=== PATIENT | female | born 1965 | race Caucasian/White ===

== ENCOUNTER 2016-07-20 15:37 | Inpatient (IN) | payer MEDICARE, BC ==
[~2016-07-20] VITALS: Ht 172.7 cm; Wt 63.7 kg
--- NOTE | ~2016-07-20 | DS ---
PATIENT:JYOTSNA JULIAN :63 MEDICAL RECORD: [id number] DISCHARGE SUMMARY ADMISSION DATE: 07/20/16 DISCHARGE DATE: 07/27/16 DATE OF ADMISSION: 07/20/2016 DATE OF DISCHARGE: 07/27/2016 HOSPITAL COURSE: This is a 51-year-old who suffered a pelvic fracture, who was seen by ortho, had a CT scan and generally can only have pain management for the first 3 days, she cried for approximately 24 hours. We tried multiple medications including morphine drip without success and did fine at Dilaudid 2 mg q.4 hours p.r.n. pain has been successful. She is being discharged to a [facility] rehab close to her family in [place]. All review of systems are negative, but she did have some pain when she got up and walked this morning. HOME MEDICATIONS: Exactly the same, we did not have an accurate med list here from her dialysis unit and still not able to obtain. The only new medications are Dilaudid 2 mg q.4 hours and Phenergan 25 mg q.4 hours p.r.n. pain and p.r.n. nausea, respectively. She will continue a renal diet. Activity as per rehab and facility. She is to return if any problems. Continue a renal diet with fluid restriction. We did discuss her tobacco use as well as it is probably time per her to quit at 51 years of age with developing symptoms of COPD. Chantix was offered, which she declined. Stable on discharge. TRANSINT:[id number] Voice Confirmation ID: [id number] DOCUMENT ID: [id number] DAVIE RODRIGUEZ MD CC: [id number] DICTATION DATE: 07/27/16827 FERMENTING CELLAR DROPPER: 07/28/16 0053 DIS IN 07/27/16 [facility] [address] [place] [address]
[~2016-07-20 15:37] MED LIST: BAYER CHEWABLE81 MG PO; BRILINTA90 MG PO; CARDURA2 MG PO; GABAPENTIN100 MG PO; GLIPIZIDE10 MG PO; HUMULIN R100 U/ML SC; NIASPAN500 MG PO; NORVASC10 MG PO; OYST-CAL-5001 TAB PO; PLAVIX75 MG PO; PRILOSEC20 MG PO; RENA-VITE TABL0.8 MG PO; RENAGEL800 MG PO; TAMOXIFEN CITRA20 MG PO; TENORMIN25 MG PO; TUMS500 MG PO; VISINE15 ML EACH EYE; ZOCOR20 MG PO
--- NOTE | 2016-07-20 15:39 | NUR ---
ALERT AND ORIENTED X4. ARRIVE TO UNIT FROM [facility] VIA STRETCHER. TRANSFER FROM STRETCHER TO BED WITH ASSISTANCE. RT PUBIC RAMUS FRACTURE WEDNESDAY. ADMITTED FOR PAIN MANAGEMENT. DIALYSIS TREATMENT BEFORE ARRIVING TO HOSPITAL. 4mg IV MORPHINE ADMINISTERED INROUTE AT 1411 PER EMT. DENIES SOB. CONTINUE PLAN OF CARE. CONTINUE ADMISSION PROCESS. BED LOCKED AND LOW. CALL LIGHT IN REACH. TWO SIDERAILS UP. SCDs ON. NONSKID SOCKS ON.
[2016-07-20] MEDS ORDERED: BAYER ASPIRIN325 MG PO (15:50)
[2016-07-20] MEDS ORDERED: PHENERGAN25 M1 PO (15:55)
[2016-07-20] MEDS ORDERED: COLACE100 MG PO (15:55)
[2016-07-20] MEDS ORDERED: PERCOCET 5-3251 TAB PO (15:56)
[2016-07-20] MEDS ORDERED: XALATAN 0.0052.5 ML EACH EYE (15:57)
[2016-07-20] MEDS ORDERED: EMLA CREAM 30 G30 G1 TOPICAL (15:57)
[2016-07-20] MEDS ORDERED: PROVENTIL HFA6.7 GM INH (15:58)
[2016-07-20] MEDS ORDERED: SENSIPAR30 MG PO (15:59)
[2016-07-20 16:18] VITALS: BP 107/56; BMI 21.2
--- NOTE | 2016-07-20 18:04 | NUR ---
[facility] SHALE PROCESSING TECHNICIAN PAGED X2 PER 'S ORDER FOR FURTHER ORDERS. CBC/BMP FOR AM LABS AND ORTHO CONSULT PER ALY HANNAH. SCDs ON. DENIES ANY NEEDS. CONTINUE PLAN OF CARE AND SAFETY PRECAUTIONS.
[2016-07-20 20:00] VITALS: BP 125/61
--- NOTE | 2016-07-20 21:20 | NUR ---
ADMIN SCHED MEDS AND MORPHINE 2MG IV PER REQUEST FOR C/O "PELVIC AND GROIN PAIN LEVEL 10 ON 0-10 NUMBER SCALE", DESCRIBED SHARP, SHOOTING PAINS WITH MOVEMENT. CHECKED BS AT 154. REFUSED INSULIN.
[2016-07-21] VITALS: BP 123/61
--- NOTE | 2016-07-21 01:04 | NUR ---
TEARFULLY REQUESTED PAIN MEDICATION FOR PELVIC PAIN. ADMIN MORPHINE 2MG IV. WILL CONT TO MONITOR.
--- NOTE | 2016-07-21 05:05 | NUR ---
VERY TEARFUL. RATING PAIN LEVEL AT 10. ADMIN MORPHINE 2MG IV. REQUESTED SOME MILK AND ALESSIA CRACKERS. CK BS AT 126. REFUSED GLIPIZIDE AND SCHED INSULINS.
[2016-07-21 06:33] LABS: INR 1.03 (0.85-1.17); PROTIME 13.4 SECONDS (11.6-15.0)
[2016-07-21 06:38] LABS: ANION GAP 20.4 mmol/L (8-16); CALCIUM 9.3 mg/dL (8.5-10.1); CARBON DIOXIDE 23.8 mmol/L (21.0-32.0); CREATININE - SERUM 7.9 mg/dL (0.6-1.3); PHOSPHOROUS 4.9 mg/dL (2.5-4.9); POTASSIUM - SERUM 4.2 mmol/L (3.5-5.1)
[2016-07-21 07:00] LABS: BASOPHILS 0.3 % (0-2); EOSINOPHILS 3.1 % (0-7); HEMATOCRIT 32.3 % (36.0-48.0); HEMOGLOBIN 10.5 g/dL (12-16); IMMATURE GRANULOCYTES 0.1 % (0-5); LYMPHOCYTES 25.7 % (15-50); MCH 33.8 pg (26.0-34.0); MCHC 32.5 g/dL (31.0-37.0); MCV 103.9 fL (80.0-100.0); MONOCYTES 19.7 % (2-11); NEUTROPHILS 51.1 % (40-80); RBC 3.11 10x6/uL (4.00-5.40); RDW 13.3 % (11.5-14.5); WBC 7.3 10x3/uL (4.8-10.8)
[2016-07-21 07:02] LABS: PLATELET COUNT 162 10x3/uL (130-400)
[2016-07-21 08:00] VITALS: BP 117/59
--- NOTE | 2016-07-21 08:20 | NUR ---
PATIENT IS AWAKE AND ALERT. SHE TOOK RENVELA POWDER BUT REQUESTS A TABLET FORM IN THE FUTURE. SHE TAKES HER CARDURA AT NIGHT AT HOME AND REQUESTS THAT THAT BE GIVEN THEN. WILL NOTIFY PHARMACY OF THESE REQUESTS. SHE RATES HER PAIN AN 8/9 OUT OF 10 IN HER HIPS. MORPHINE GIVEN PER THE IV IN HER RIGHT WRIST SL. SHE STATES THAT THE PAIN IN HER HIPS MAKES IT VERY DIFFICULT FOR HER TO MOVE AROUND IN HER BED.
--- NOTE | 2016-07-21 10:10 | NUR ---
PATIENT CONTINUES TO C/O PAIN RATED A 9 DESPITE RECENT DOSE OF MS. DISCUSSED THIS WITH HAND GLUER AND SLICER, NEW ORDERS RECEIVED. SENIOR IT BUSINESS ANALYST BEGUN AND BENADRYL GIVEN ORALLY. SENIOR IT BUSINESS ANALYST INSTRUCTIONS GIVEN ORALLY. SHE VERBALIZED AND DEMONSTRATED UNDERSTANDING. SHE STATES THAT IS FEELS LIKE HER HIPS ARE BEING PULLED APART WHEN SHE PUSHES SELF UP IN BED. ENCOURAGED HER TO CALL FOR ANY PRECEIVED NEEDS, MAYBE WE COULD HELP HER REPOSITION SELF.
[2016-07-21 10:11] VITALS: Ht 172.7 cm; Wt 63.7 kg
--- NOTE | 2016-07-21 10:53 | NUR ---
PATIENT RESTING WITH EYES CLOSED. SHE CURRENTLY RATES HER PAIN A 5 AND HER ITCHING IS MUCH LESS "ITS GOING AWAY" DENIES OTHER NEEDS AT THIS TIME.
[2016-07-21 13:26] VITALS: BP 116/59
[2016-07-21 16:00] VITALS: BP 105/47
--- NOTE | 2016-07-21 18:01 | NUR ---
REVIEW TRAINER IN USE AND PATIENT IS WITHOUT C/O UNRELEAVED PAIN.
--- NOTE | 2016-07-21 19:18 | NUR ---
RECEIVED REPORT, PT ALERT AND ORIENTATED, PT DENIES ANY NEEDS AT THIS TIME, BED IS LOW, SRX2, BED ALARM IS ON, CALL LIGHT IN REACH, WILL CONTINUE PLAN OF CARE
--- NOTE | 2016-07-21 19:30 | NUR ---
ALERT/AWAKE WATCHING TV. RATES PAIN LEVEL AT 2 ON 0-10 NUMBER SCALE. IV IN R WRIST INTACT WITH NS INFUSING AT 10ML/HR. HAS ISOBUTYLENE OPERATOR CHIEF WITH MORPHINE FOR PAIN CONTROL. L ARM FISTULA HAS POSITIVE BRUIT/THRILL AUSCULTATED. HAS CALL LIGHT IN REACH FOR ANY NEED.
[2016-07-21 20:00] VITALS: BP 139/69
[2016-07-22 01:17] VITALS: BP 128/62
--- NOTE | 2016-07-22 01:27 | NUR ---
ASSISTED PT WITH BEDSIDE COMMODE.
[2016-07-22 06:28] VITALS: BP 138/69
--- NOTE | 2016-07-22 07:46 | NUR ---
AM ROUNDING- RECEIVED REPROT FROM STEAMFITTER NURSE ARASH. PT IS CURRENTLY SITTING UP IN BED WITH EYES OPEN RESTING C/O 10/10 PAIN FROM PELVIC AREA. PT IS UPSET BECAUSE SHE HAS HIT MAX LIMIT ON HYDRO TECHNICIAN PUMP (MORPHINE 1MG Q10MIN WITH 10MG LOCKOUT Q4H ORDERED). EXPLAINED TO PT THAT SHE HAS A LOCKOUT LIMIT AND SHE WILL NOT BE ABLE TO RECEIVE PAIN MEDICINE VIA HYDRO TECHNICIAN PUMP UNTIL TIME IS UP. PRACHI ALARCON, CASER UP GAVE PT PRN OXYCODONE AND PHENERGAN ORDERED FOR PAIN. ON ROOM AIR. NO MONITOR. IV SEEN TO RIGHT WRIST WITH NS RUNNING AT 10CC. RESERVE LEFT ARM FOR AVF. NO NEED AT CURRENT TIME. WILL CONTIUE TO MONITOR AND CONTINUE WITH PLAN OF CARE.
[2016-07-22 08:00] VITALS: BP 167/78
--- NOTE | 2016-07-22 09:02 | NUR ---
NAEL FROM LAB TRIED TO STICK PT TWICE AND WAS NOT ABLE TO GET BLOOD. PT REQUESTED LAB TO COME BACK TO TRY AND STICK HER WHEN SHE HAS DRANK MORE FLUIDS. THIS INFORMATION WAS PASSED ON TO ME FROM GABRIELE IN LAB. WILL CONTINUE TO MONITOR.
--- NOTE | 2016-07-22 10:53 | NUR ---
* Is the patient Alert and Oriented? Yes 0 * How many steps to enter\exit or inside your home? 3 0 * PCP Dr. Agustin 0 * Pharmacy [facility] 0 * Preadmission Environment Home with Family 0 * ADLs Independent 0 * Equipment Rolling Walker 0 * List name and contact numbers for known caregivers / representatives who currently or will assist patient after discharge: Spouse - Moises [phone] 0 * Community resources currently utilized Other 0 * Please name any agencies selected above. [facility] 0 * Can the patient safely return to the preadmission environment? Yes 0 * Has this patient been hospitalized within the prior 30 days at any hospital? No 07/22/2016 10:53 DCP: Discharge Planning Patient Name: JYOTSNA JULIAN Admission Status: Urgent Accout number: [id number] Admission Date: 07-20-2016 : 1965 Admission Diagnosis:PELVIC AND PERINEAL PAIN Attending: ERIN Current LOS: 2 Planned Disposition: Home Primary Insurance: MEDICARE A & B Discharge Planning Comments: CM met with patient to assess dc plans/needs. Patient states she lives at home with her . She reports she was independent with all ADL's & IADL's prior to her fall last week. Since her fall, she has been using a walker while ambulating. She denies having home health services. She states she goes to hemodialysis MWF @ 0600 at the [facility]. She states she drives herself. At dc, patient may benefit from outpatient physical therapy. CM will follow & assist as needed. Post Framer: Cher Simon
--- NOTE | 2016-07-22 12:31 | NUR ---
DIANNE SHIPLEY NP IN ROOM NOW MAKING ROUNDS. WILL CONTINUE TO MONITOR.
[2016-07-22 14:01] VITALS: BP 151/56
[2016-07-22 15:40] LABS: ANION GAP 22.4 mmol/L (8-16); CARBON DIOXIDE 21.8 mmol/L (21.0-32.0)
[2016-07-22 15:41] LABS: CREATININE - SERUM 10.6 mg/dL (0.6-1.3)
[2016-07-22 15:42] LABS: POTASSIUM - SERUM 6.2 mmol/L (3.5-5.1)
--- NOTE | 2016-07-22 15:44 | NUR ---
PAGED DR. RODRIGUEZ REGARDING PTS POTASSIUM LEVEL (6.2). WILL AWAIT CALLBACK AND CONTINUE TO MONITOR.
--- NOTE | 2016-07-22 15:48 | NUR ---
RECEIVED CALLBACK FROM DR. RODRIGUEZ. DR. RODRIGUEZ INFORMED OF PTS POTASSIUM LEVEL (6.2). DR. RODRIGUEZ STATES PT CANNOT HANDLE KAYEXALATE AND WILL HAVE TO DIALYZE TODAY. DR. RODRIGUEZ STATES TO CALL DIALYSIS AND IFORM THEM OF THIS. CALLING DIALYSIS NOW WITH NO ANSWER. WILL TRY AGAIN AND CONTINUE TO MONITOR.
[2016-07-22 16:00] VITALS: BP 123/68
--- NOTE | 2016-07-22 16:02 | NUR ---
CALLED DIALYSIS AGAIN WITH NO ANSWER AGAIN. WILL PAGE DR. RODRIGUEZ TO INFORM HIM OF THIS.
--- NOTE | 2016-07-22 16:05 | NUR ---
RECEIVED CALLBACK FROM DR. RODRIGUEZ. IFORMED DR. RODRIGUEZ THAT I HAVE CALLED DIALYSIS A FEW TIMES WITH NO ANSWER. DR. RODRIGUEZ GAVE NO NEW ORDERS. WILL CONTINUE TO MONITOR.
--- NOTE | 2016-07-22 17:57 | NUR ---
PT IS CURRENTLY LAYING IN BED ON BACK WITH EYES OPEN RESTING. IS AT BEDSIDE. NO NEED AT CURRENT TIME. WILL CONTINUE TO MONITOR.
[2016-07-22 21:40] VITALS: BP 123/58
--- NOTE | 2016-07-22 22:10 | NUR ---
ADMIN SCHED MEDS AND 2 UNITS INSULIN SC FOR BS 158. RATES PAIN LEVEL AT 2 ON NUMBER SCALE. REQUESTED ANOTHER BOX OF TISSUES.
[2016-07-23 01:21] VITALS: BP 112/60
--- NOTE | 2016-07-23 03:59 | NUR ---
PULLED IV OUT. RESITED IN RIGHT WRIST 22G. C/O NAUSEA. ADMIN PHENERGAN 25MG PO.
--- NOTE | 2016-07-23 04:40 | NUR ---
ASSISTED TO BSC AND BACK TO BED. DID NOT HAVE A BM, PASSED GAS ONLY. ADMIN PHENERGAN PO FOR C/O NAUSEA AND BENADRYL FOR C/O ITCHING. RATES PAIN LEVEL AT 10.
[2016-07-23 04:47] VITALS: BP 110/59
--- NOTE | 2016-07-23 05:46 | NUR ---
REFUSED TECHNICAL PRODUCT MANAGER TO DRAW BLOOD. STATED IT SHE WANTED IT DOWN IN DIALYSIS.
--- NOTE | 2016-07-23 06:18 | NUR ---
CALLED DIALYSIS PER PATIENT'S REQUEST TO FIND OUT WHEN SHE IS SCHEDULED TODAY. NO ONE ANSWERED. WILL INFORM PATIENT.
--- NOTE | 2016-07-23 07:00 | NUR ---
PT WAS RECEIVED IN BED AWAKE AND ORIENTED X 3 AT THE BEGINNING OF THIS SHIFT. NO COMPLAINTS AT THIS TIME. SHE IS ASKING WHEN DOES SHE DIALIZE TODAY. RT. WRIST IV WITH NS INFUSING VIA PUMP AT 10ML'S/HR RATE OF FLOW. DATABASE ADMINISTRATOR MORPHINE PUMP. UP TO BEDSIDE COMMODE WITH ASSIST. RESERVE LEFT ARM. LEFT AV-FISTULA. WILL BE MONITORING HER THROUGH THIS SHIFT AND ASSISTING PRN WITH ADL'S. CALL LIGHT IS IN REACH.
[2016-07-23 08:40] VITALS: BP 112/56
[2016-07-23 10:53] LABS: BASOPHILS 0.3 % (0-2); EOSINOPHILS 4.2 % (0-7); HEMATOCRIT 25.5 % (36.0-48.0); HEMOGLOBIN 8.6 g/dL (12-16); IMMATURE GRANULOCYTES 0.8 % (0-5); MCH 33.5 pg (26.0-34.0); MCHC 33.7 g/dL (31.0-37.0); MCV 99.2 fL (80.0-100.0); MEAN PLATELET VOLUME 9.2 fL (7.4-10.4); MONOCYTES 10.8 % (2-11); NEUTROPHILS 63.9 % (40-80); PLATELET COUNT 173 10x3/uL (130-400); RBC 2.57 10x6/uL (4.00-5.40); RDW 12.6 % (11.5-14.5); WBC 6.4 10x3/uL (4.8-10.8)
[2016-07-23 11:06] LABS: ANION GAP 22.8 mmol/L (8-16); CALCIUM 8.6 mg/dL (8.5-10.1); CREATININE - SERUM 11.9 mg/dL (0.6-1.3); PHOSPHOROUS 6.4 mg/dL (2.5-4.9); POTASSIUM - SERUM 5.8 mmol/L (3.5-5.1)
--- NOTE | 2016-07-23 12:15 | NUR ---
Nutrition follow-up: Diet: Renal ADA consistent CHO PO intake poor at this time due to nuasea, increased pain, increased pain medication Labs reviewed Wt: 138# Pt in dialysis at this time RDN following.
--- NOTE | 2016-07-23 17:39 | NUR ---
PT WENT TO THERAPY AT 10:15AM AND RETURNED AFTER LUNCH TIME. WHILE SHE WAS IN DIALYSIS SHE REQUESTED SOMETHING FOR PAIN AND RECEIVED A DILAUDID 2MG PO ORDERED PRN. THE TRASH TRUCK DRIVER MORPHINE WAS DC'D. SHE HAS NOT ASKED FOR ANYMORE PAIN MEDICATION THIS SHIFT. STABLE CONDITION OBSERVED. CONTINUING TO OBSERVE.
[2016-07-23 20:24] VITALS: BP 100/43
[2016-07-24 01:28] VITALS: BP 98/33
[2016-07-24 04:34] VITALS: BP 99/43
--- NOTE | 2016-07-24 07:42 | NUR ---
AM ROUNDING DONE WITH NO COMPLAINTS FROM PATIENT AT THIS TIME. ON HEART MONITOR SHOWING SR, HR 81. ON ROOM AIR. SALINE LOCK SEEN TO RIGHT HAND, LEFT AVF TO UPPER ARM, + BRUIT AND THRILL. PATIENT REPORTS THAT SHE DOES NOT VOID, FOR DIALYSIS AGAIN TODAY. WILL MONITOR.
--- NOTE | 2016-07-24 08:05 | NUR ---
MET WITH PATIENT ABOUT GOING TO A SKILLED FACILITY FOR REHAB. SHE STATED THAT SHE WANTED TO GO TO [facility] IN [place]. PATIENT CHOICE FORM SIGNED. AFTER SHE RECEIVES HER PHYSICAL THERAPY EVAL, WILL MAKE REFERRAL TO [facility].
[2016-07-24 08:47] VITALS: BP 118/61
--- NOTE | 2016-07-24 09:49 | NUR ---
Dialysis Coordinator: ADAMARIS [facility] MWF @ 6:20am. Records to home unit for their charts. JUAN A BOWEN.
--- NOTE | 2016-07-24 09:54 | NUR ---
0945-TO DIALYSIS SUITE VIA BED.
--- NOTE | 2016-07-24 13:41 | NUR ---
RETURNS TO ROOM.
--- NOTE | 2016-07-24 15:46 | NUR ---
HAVE SPOKE WITH SUMMER AT [facility]. PATIENT HAS BEEN ACCEPTED AND WILL BE GOOD FOR ADMISSION ON WEDNESDAY. IT WAS EXPLAINED THAT HER SPOUSE HAS STATED HE WOULD TRANSPORT HER THERE. SHE STATED SHE WOULD CALL ON WEDNESDAY TO CONFIRM DISCHARGE.
[2016-07-24 16:29] LABS: BASOPHILS 0.4 % (0-2); EOSINOPHILS 4.8 % (0-7); HEMATOCRIT 33.7 % (36.0-48.0); HEMOGLOBIN 11.1 g/dL (12-16); IMMATURE GRANULOCYTES 0.6 % (0-5); MCH 33.8 pg (26.0-34.0); MCHC 32.9 g/dL (31.0-37.0); MCV 102.7 fL (80.0-100.0); NEUTROPHILS 63.2 % (40-80); PLATELET COUNT 266 10x3/uL (130-400); RBC 3.28 10x6/uL (4.00-5.40); RDW 12.8 % (11.5-14.5)
[2016-07-24 16:38] LABS: ANION GAP 23.1 mmol/L (8-16); CALCIUM 9.5 mg/dL (8.5-10.1); CARBON DIOXIDE 24.1 mmol/L (21.0-32.0)
[2016-07-24 16:39] LABS: CREATININE - SERUM 5.1 mg/dL (0.6-1.3); POTASSIUM - SERUM 4.2 mmol/L (3.5-5.1)
--- NOTE | 2016-07-24 16:41 | NUR ---
PER DR RODRIGUEZ, PATIENT WILL BE GOOD FOR DISCHARGE AFTER DIALYSIS ON WEDNESDAY. THIS HAS BEEN RELAYED TO THE PATIENT AND HER SPOUSE.
--- NOTE | 2016-07-24 16:46 | NUR ---
1649-PATIENT IS OUTSIDE OF THE BUILDING IN A WHEELCHAIR WITH SPOUSE.
--- NOTE | 2016-07-24 17:14 | NUR ---
1705-TO RETURN TO ROOM.
--- NOTE | 2016-07-24 18:21 | NUR ---
1815-OFF THE FLOOR AGAIN PER WHEELCHAIR WITH SPOUSE.
[2016-07-24 19:41] VITALS: BP 125/64
--- NOTE | 2016-07-24 20:45 | NUR ---
PT RECEIVED SITTING UP ON SIDE OF BED WATCHING TV AT THIS TIME. ASSESSMENT COMPLETED PER FLOW SHEET AND PM MEDS GIVEN AT THIS TIME. PT FSBS 148. PT REQUESTS APPLE JUICE. DENIES OTHER NEEDS. BED LOW. PHONE AND CALL LIGHT IN REACH. SRX2.
--- NOTE | 2016-07-24 23:09 | NUR ---
PRN MEDS GIVEN AT THIS TIME. PT REQUESTS 2 SMALL BANDAIDS. DENIES OTHER NEEDS. BED LOW. PHONE AND CALL LIGHT IN REACH. SRX2.
--- NOTE | 2016-07-24 23:43 | NUR ---
PT RESTING WELL WITHOUT C/O OR DISTRESS NOTED. NO CHANGES NOTED IN ASSESSMENT. CALL LIGHT WITHIN REACH. WILL CONT TO MONITOR.
--- NOTE | 2016-07-25 00:40 | NUR ---
PT RESTING QUIETLY AT THIS TIME WITH EYES CLOSED. RESPIRATIONS EVEN, NON-LABORED. NO ACUTE DISTRESS NOTED AT THIS TIME. BED LOW. PHONE AND CALL LIGHT IN REACH. SRX2.
[2016-07-25 00:59] VITALS: BP 97/56
--- NOTE | 2016-07-25 04:00 | NUR ---
PT IN BED, PLACED HEART MONITOR BACK ON, PT DENIES ANY NEEDS AT THIS TIME. CALL LIGHT IN REACH, BED RAILS X2, BED LOW AND LOCKED. NAD NOTED, WILL CONTINUE TO MONITOR.
--- NOTE | 2016-07-25 07:15 | NUR ---
BLOOD SUGAR OF 158, 2 UNITS OF HUMALOG GIVEN PER S/S. PT UP TO SIDE OF BED, DENIES ANY NEEDS AT THIS TIME. CALL LIGHT IN REACH, NAD NOTED, WILL CONTINUE TO MONITOR.
[2016-07-25 11:44] VITALS: BP 121/45
--- NOTE | 2016-07-25 12:00 | NUR ---
FSBS 246; PATIENT RECEIVED 4 UNITS OF HEMALOG INSULIN PER S/S; GIVEN PER SEMICONDUCTOR WAFERS ETCHER STRIPPER AND INSTRUCTOR; NO NEEDS AT THIS TIME; WILL CONTINUE TO MONITOR
--- NOTE | 2016-07-25 14:09 | NUR ---
PATIENT A/O; FINE SANDER FLUSH IV; FLUSHED WITH NO DIFFICULTY; NO NEEDS AT THIS TIME; WILL CONTINUE TO MONITOR
[2016-07-25 16:00] VITALS: BP 104/47
--- NOTE | 2016-07-25 16:30 | NUR ---
FSBS 179; PATIENT RECEIVED 2 UNITS HEMALOG PER S/S; NO NEEDS AT THIS TIME; UP TO SIDE OF BED; WILL CONTINUE TO MONITOR
--- NOTE | 2016-07-25 17:50 | NUR ---
PATIENT BACK TO ROOM WITH NO C/O OR DISTRESS AT THIS TIME; BED IN LOWEST POSITION WITH RAILS UP X 2; CALL LIGHT WITHIN REACH; WILL CONTINUE TO MONITOR
[2016-07-25 21:00] VITALS: BP 135/63
--- NOTE | 2016-07-25 21:00 | NUR ---
SITTING UP IN BED TALKING ON PHONE. ADMIN SCHED MEDS AND HUMALOG 4 UNITS FOR BS 227.
--- NOTE | 2016-07-26 00:23 | NUR ---
ADMIN BENADRYL 25MG PO PER REQUEST FOR C/O "ITCHING". NO OTHER NEEDS VOICED.
[2016-07-26 04:00] VITALS: BP 135/51
--- NOTE | 2016-07-26 05:50 | NUR ---
AMBULATING IN HALLWAY TO GET COFFEE. REQUESTED PAIN MED AND PHENERGAN.
[2016-07-26 08:00] VITALS: BP 157/87
[2016-07-26 11:45] VITALS: BP 117/51
--- NOTE | 2016-07-26 15:24 | NUR ---
UP AMBULATING HALLWAY WITH WALKER.
[2016-07-26 15:56] VITALS: BP 116/47
--- NOTE | 2016-07-26 19:17 | NUR ---
ALERT/AWAKE WATCHING TV. DENIES ANY NEEDS. RATES PAIN LEVEL AT 6 ON NUMBER SCALE. IV IN HAND INTACT SL. HOUSECLEANER FLOOR SHOWS 66 SR. BEDSIDE TABLE, CALL LIGHT AND WALKER WITHIN REACH.
--- NOTE | 2016-07-26 21:19 | NUR ---
ADMIN SCHED MEDS AND DILAUDID PO PER REQUEST FOR C/O PAIN. REQUESTED CARTON OF MILK. NO OTHER NEEDS VOICED.
[2016-07-26 21:30] VITALS: BP 103/55
[2016-07-27 00:55] VITALS: BP 120/53
[2016-07-27 05:39] LABS: BASOPHILS 0.6 % (0-2); EOSINOPHILS 6.5 % (0-7); HEMOGLOBIN 9.8 g/dL (12-16); IMMATURE GRANULOCYTES 0.8 % (0-5); LYMPHOCYTES 28.2 % (15-50); MCH 34.3 pg (26.0-34.0); MCHC 33.8 g/dL (31.0-37.0); MCV 101.4 fL (80.0-100.0); MEAN PLATELET VOLUME 9.7 fL (7.4-10.4); MONOCYTES 8.6 % (2-11); NEUTROPHILS 55.3 % (40-80); RBC 2.86 10x6/uL (4.00-5.40); RDW 12.6 % (11.5-14.5); WBC 8.5 10x3/uL (4.8-10.8)
[2016-07-27 05:43] LABS: PLATELET COUNT 329 10x3/uL (130-400)
--- NOTE | 2016-07-27 05:45 | NUR ---
AMBULATING IN ROOM WITH WALKER. JUST HAD A SHOWER. REQUESTED TELEMETRY LEFT OFF AND IV REMOVED BECAUSE IT IS HURTING HER. I REMOVED THE IV PER HER REQUEST. REFUSED ANOTHER IV RESITED. ADMIN DILAUDID AND PHENERGAN PER REQUEST FOR C/O PAIN AND NAUSEA.
[2016-07-27 05:55] VITALS: BP 142/69
[2016-07-27 05:57] LABS: ANION GAP 18.1 mmol/L (8-16); CALCIUM 8.7 mg/dL (8.5-10.1); CARBON DIOXIDE 20.1 mmol/L (21.0-32.0); CREATININE - SERUM 10.5 mg/dL (0.6-1.3); POTASSIUM - SERUM 5.2 mmol/L (3.5-5.1)
[2016-07-27] MEDS ORDERED: DILAUDID2 MG PO (07:39)
--- NOTE | 2016-07-27 07:54 | NUR ---
AWAKE CO PAIN GIVEN DILAUDID PO.
[2016-07-27 08:22] VITALS: BP 134/63
--- NOTE | 2016-07-27 14:16 | NUR ---
REPORT CALLED TO NURSING FACILITY. REPORT GIVEN TO Xu TUCKER LPN.
--- NOTE | 2016-07-27 14:26 | NUR ---
HERE. DISCHARGE INSTRUCTIONS GIVEN. TO CAR VIA .
== END 2016-07-27 14:27 | DRG 947 ==
LOC: D.M2 15:37
PROVIDERS: ADMIT Internal Medicine Nephrology
PROC: 5A1D60Z (ICD-10-PCS; principal; 2016-07-20)
DX: G89.11 Acute pain due to trauma (principal); N18.6 End stage renal disease; I12.0 Hypertensive chronic kidney disease with stage 5 chronic kidney disease or end stage renal disease; N25.81 Secondary hyperparathyroidism of renal origin; S32.501A Unspecified fracture of right pubis, initial encounter for closed fracture; W01.0XXA Fall on same level from slipping, tripping and stumbling without subsequent striking against object, initial encounter; E11.22 Type 2 diabetes mellitus with diabetic chronic kidney disease; Z99.2 Dependence on renal dialysis; I25.10 Atherosclerotic heart disease of native coronary artery without angina pectoris; D63.1 Anemia in chronic kidney disease; Z72.0 Tobacco use

== ENCOUNTER → 2017-01-08 13:36 | Outpatient (CLI) | payer MEDICARE, BC ==
[2016-07-21 10:11] VITALS: BMI 21.1
[~2017-01-08 13:36] MED LIST changes: +BAYER ASPIRIN325 MG PO; +COLACE100 MG PO; +DILAUDID2 MG PO; +EMLA CREAM 30 G30 G1 TOPICAL; +PERCOCET 5-3251 TAB PO; +PHENERGAN25 M1 PO; +PROVENTIL HFA6.7 GM INH; +SENSIPAR30 MG PO; +XALATAN 0.0052.5 ML EACH EYE
== END | disposition home or self-care (01) ==
LOC: D.RT 13:36
DX: J44.9 Chronic obstructive pulmonary disease, unspecified (principal); J90 Pleural effusion, not elsewhere classified

== ENCOUNTER 2018-06-17 16:37 | Inpatient (IN) | payer MEDICARE, BC ==
[~2018-06-17] VITALS: Ht 172.7 cm; Wt 60.8 kg
[2018-06-17 19:03] LABS: BASOPHILS 0.8 % (0-2); EOSINOPHILS 7.1 % (0-7); HEMATOCRIT 33.7 % (36.0-48.0); HEMOGLOBIN 11.1 g/dL (12-16); IMMATURE GRANULOCYTES 0.2 % (0-5); LYMPHOCYTES 32.8 % (15-50); MCH 32.7 pg (26.0-34.0); MCHC 32.9 g/dL (31.0-37.0); MCV 99.4 fL (80.0-100.0); MEAN PLATELET VOLUME 10.1 fL (7.4-10.4); MONOCYTES 11.1 % (2-11); RBC 3.39 10x6/uL (4.00-5.40); RDW 14.7 % (11.5-14.5)
[2018-06-17 19:05] LABS: PLATELET COUNT 205 10x3/uL (130-400)
[2018-06-17 19:09] LABS: ALBUMIN 3.6 g/dL (3.4-5.0); ALKALINE PHOSPHATASE 225 U/L (46-116); ALT (SGPT) 19 U/L (10-68); BILIRUBIN - TOTAL 0.56 mg/dL (0.2-1.3); CALC OSMOLALITY 289 mosm/kg (275-300); CALCIUM 8.4 mg/dL (8.5-10.1); CARBON DIOXIDE 24.1 mmol/L (21.0-32.0); CHLORIDE - SERUM 101 mmol/L (98-107); CKMB 0.6 U/L (0.0-3.6); CREATINE KINASE 102 UL (21-215); CREATININE - SERUM 4.4 mg/dL (0.6-1.3); GLUCOSE 170 mg/dL (74-106); PHOSPHOROUS 3.5 mg/dL (2.5-4.9); POTASSIUM - SERUM 3.5 mmol/L (3.5-5.1); PROTEIN - SERUM 7.8 g/dL (6.4-8.2); SODIUM 140 mmol/L (136-145); UREA NITROGEN 31 mg/dL (7-18); eGFR NON AFRICAN AMERICAN 11 mL/min (90-120)
[2018-06-17] MEDS ORDERED: METOPROLOL TART50 MG PO (21:58)
[2018-06-17] MEDS ORDERED: TESSALON PERLE100 MG PO (21:59)
[2018-06-17 22:02] VITALS: BP 117/69
--- NOTE | 2018-06-17 22:05 | NUR ---
RECEIVED VIA WHEELCHAIR FROM ER, PT IS A&OX4, MEDS AND HISTORY ARE COMPLETE, TELEMTRY IS ON, PROVIDE A GLASS OF WATER, BED IS LOW, SRX2, CALL LIGHT IN REACH, WILL CONTINUE PLAN OF CARE
[2018-06-17 22:55] VITALS: BP 117/69; BMI 20.4
--- NOTE | 2018-06-17 23:17 | NUR ---
ADMISSION ASSESSMENT COMPLETED. CARDIZEM DRIP INFUSING AT 10ML/HR. PT ALERT/ORIENTED AND RESTING WITH NO DISTRESS. CURRENTLY UCAF/104. MONITOR AND CPOC.
[2018-06-18 04:00] VITALS: BP 122/63
--- NOTE | 2018-06-18 05:00 | NUR ---
CONVERTED TO SR @0047, RATE NOW IS 57, TURNED DRIP OFF, WILL MONITOR
--- NOTE | 2018-06-18 07:00 | NUR ---
RECEIVED REPORT. ASSUMED CARE OF PATIENT. PATIENT SITTING TO SIDE OF BED, DRESSED IN PERSONAL CLOTHING, READY TO GO HOME. CALL LIGHT WITHIN REACH. NO DISTRESS. ADVISED PATIENT THIS EVS ATTENDANT HAS NO DISCHARGE ORDERS AT THIS TIME.
[2018-06-18 07:59] VITALS: BMI 20.3
[2018-06-18 08:18] VITALS: BP 131/63
[2018-06-18 08:59] VITALS: Ht 172.7 cm; Wt 60.8 kg
--- NOTE | 2018-06-18 11:41 | NUR ---
CALLED ALY HENRIQUEZ TO MAKE SURE THAT SHE KNEW OF THE DISCHARGE ON PATIENT. SHE STATES THAT HE MIGHT CONSIDER LETTING HER GO. THIS NURSE INFORMED HER THAT PATIENT CONTINUES TO MEET CRITERIA SET FORTH IN HIS NOTES AND ECHO HAS BEEN COMPLETE. [employer] HAS INFORMED THAT THE ECHO HAS BEEN DOWNLOADED AND READY FOR VEIWING. DR. LACY IS ON HIS WAY BACK TO THE HOSPITAL AT THIS TIME TO REVIEW ECHO PER ACID PUMP OPERATOR.
[2018-06-18 11:57] VITALS: BP 132/57
--- NOTE | 2018-06-18 12:05 | NUR ---
FSBS 249. 8 UNITS HUMULIN ADMINISTERED PER SLIDING SCALE. NO DISTRESS. REFUSED LOVENOX INJECTION. AWAITING TO GO HOME.
[2018-06-18] MEDS ORDERED: CARDIZEM CD120 MG PO (12:39)
--- NOTE | 2018-06-18 13:33 | NUR ---
1320 20 GAUGE IV REMOVED FROM RIGHT HAND. CATHETER TIP INTACT. NO BLEEDING FROM SITE. 2X2 GAUZE APPLIED AND SECURED WITH BANDAID. TELEMETRY REMOVED. 1330 DISCHARGE INSTRUCTIONS PROVIDED TO PATIENT AND HER SPOUSE. PATIENT VERBALIZED UNDERSTANDING OF ALL INSTRUCTIONS PROVIDED. 1335 PATIENT REFUSED WHEELCHAIR. PATIENT AMBULATED OFF UNIT IN NO DISTRESS WITH ALL PERSONAL BELONGINGS. PATIENT DISCHARGED TO HOME.
--- NOTE | 2018-06-20 09:06 | MORECARE ---
CASE MANAGEMENT DISCHARGE SUMMARY PATIENT: JYOTSNA JULIAN UNIT: [id number] ADM DATE: 06/17/18 AGE: 53 : 63 SEX: F ROOM/BED: D.9480 AUTHOR: ORQUIDEA PRICE PHYSICIAN: REFERRING PHYSICIAN: ANGELIKA BERMUDEZ MD DATE OF SERVICE: 06/20/18 Discharge Plan Patient Name: JYOTSNA JULIAN Facility: [facility]:[place] : 1965 Planned Disposition: Home Anticipated Discharge Date: 06/18/18 Discharge Date: 06/18/2018 Expected LOS: 1 Initial Reviewer: [email or web address] Initial Review Date: 06/20/2018 Generated: 06/20/18 10:06 am Patient Name: JYOTSNA JULIAN Page [phone] at 0906 All edits/amendments must be made on the electronic document DICTATION DATE: 06/20/18905 TILE SHADER: IVETTE 06/20/18905 RPT#: [id number] DC DATE:06/18/18 STATUS: DIS IN [facility] [address] [place] [address] END OF REPORT
== END 2018-06-18 13:44 | disposition home or self-care (01) | DRG 308 ==
LOC: D.ER 16:37 → D.M2 21:00
PROVIDERS: Family Medicine; ADMIT Internal Medicine Nephrology; ATTEND Internal Medicine Nephrology
DX: I48.91 Unspecified atrial fibrillation (principal); N18.6 End stage renal disease; I12.0 Hypertensive chronic kidney disease with stage 5 chronic kidney disease or end stage renal disease; F17.213 Nicotine dependence, cigarettes, with withdrawal; I34.0 Nonrheumatic mitral (valve) insufficiency; I25.10 Atherosclerotic heart disease of native coronary artery without angina pectoris; E11.22 Type 2 diabetes mellitus with diabetic chronic kidney disease; Z99.2 Dependence on renal dialysis; D50.9 Iron deficiency anemia, unspecified; J44.9 Chronic obstructive pulmonary disease, unspecified; E11.40 Type 2 diabetes mellitus with diabetic neuropathy, unspecified; D72.1 Eosinophilia

== ENCOUNTER 2018-07-22 13:05 | Inpatient (IN) | payer MEDICARE, BC ==
[~2018-07-22] VITALS: Ht 172.7 cm; Wt 60.8 kg
--- NOTE | ~2018-07-22 | CN ---
PATIENT NAME:JYOTSNA HOPE MEDICAL RECORD: [id number] : 63 LOCATION:D.M2 D.2134 ADMIT DATE: 07/22/18 ACCOUNT: [id number] CONSULTING PHYSICIAN: LORI CORTEZ MD REFERRING PHYSICIAN: ABHI LANGE DO DATE OF CONSULTATION: 07/22/2018 CONSULT REQUESTING PHYSICIAN: Abhi Lange DO REASON FOR CONSULTATION: Acute exacerbation of chronic obstructive pulmonary disease and chronic cough. HISTORY OF PRESENT ILLNESS: Ms. Hope is a 53-year-old female who has a history of COPD and end-stage renal disease. She was smoking until 3 weeks ago. According to the patient, she has a cough for almost a year. Sometimes it is productive with a phlegm. She has taken a few courses of antibiotic but was not getting any better. Now, she has worsening shortness of breath and the patient came into the ER. On evaluation, she was found that her pro-BNP is 13,000. There is no fever and chill. No nausea or vomiting. PAST MEDICAL HISTORY: 1. COPD. 2. Chronic hypoxic respiratory failure. 3. Hypertension. 4. Type 2 diabetes mellitus. 5. Coronary artery disease. 6. Atrial fibrillation. 7. History of hemolytic uremic syndrome. 8. Macrocytic normochromic anemia. PAST SURGICAL HISTORY: 1. She has cholecystectomy. 2. She has a breast surgery in 2008. 3. She has a history of pericardial effusion drainage. 4. History of thoracentesis. 5. She has a history of open kidney biopsy. 6. She has a kidney transplant in 2006 that has been fair. 7. She has a fistula placement. 8. She has a cardiac catheterization and stent placement. ALLERGIES: THE PATIENT IS ALLERGIC TO HYDROCODONE AND QUINAPRIL. MEDICATIONS: On [employer] is reviewed. PERSONAL AND SOCIAL HISTORY: The patient was a heavy smoker. She just quit it 3 weeks ago. FAMILY HISTORY: Noncontributory. PHYSICAL EXAMINATION: GENERAL: Now, the patient is sitting in bed. She is not in acute distress. VITAL SIGNS: The blood pressure is 169/78, pulse is 84, respirations 17, temperature 98.4, SpO2 is 96% on room air. HEENT: Conjunctivae are pink. Sclerae are not icteric. NECK: Supple, no JVD. CONSULT REPORT [id number] ELIEL,JYOTSNA BYRD CHEST: The chest excursion is minimal on both sides, crackles at the bases. No wheezing. HEART: Rhythm regular, normal sound, no murmur. ABDOMEN: Soft, bowel sounds present. No hepatosplenomegaly. RECTAL: Deferred. EXTREMITIES: No cyanosis, no clubbing, no pedal edema. CENTRAL NERVOUS SYSTEM: The patient is awake and alert. There are no obvious cranial nerve abnormality. The gait was not tested. CHEST RADIOGRAPHS: There is no acute finding. There is a calcified pleural plaque on the right side. The remaining lung or pleural margins is clear. OTHER LABORATORY DATA: CBC: The WBC is 9.7, hemoglobin 10.8, hematocrit 33.5, and the platelet count 202. Chemistry: Sodium 139, potassium 4.3, BUN is 48, creatinine 5.9. The proBNP is 13,000. IMPRESSION: 1. Acute exacerbation of chronic obstructive pulmonary disease. 2. Tracheobronchitis. 3. Fxtgq-dl-siqmsks hypoxic respiratory failure. 4. Chronic cough. 5. Dyspnea. 6. End-stage renal disease. 7. Gastroesophageal reflux disease without esophagitis. 8. Pleural plaque, most likely secondary to previous history of pleural effusion. 9. Ex-smoker. The patient just quit it 3 weeks ago. 10. Atrial fibrillation that is controlled. 11. Possible congestive heart failure, fluid overload. RECOMMENDATIONS: 1. Methylprednisolone IV. 2. Adjust the dosage. 3. Continue empiric antibiotic. 4. Albuterol/ipratropium nebulizer. 5. Brovana/budesonide nebulizer. 6. Cardiac echo. 7. Supplemental oxygen as required. 8. Follow up labs and chest radiographs. 9. Hemodialysis per nephrology. Dr. Lange, thank you for involving me in the care of Ms. Hope. TRANSINT:[id number] Voice Confirmation ID: [id number] DOCUMENT ID: [id number] CONSULT REPORT [id number] AZALEAJacJYOTSNA MUSHTAQ MD CC: [id number] DICTATION DATE: 07/23/18 163 SENIOR FORMULATION SCIENTIST: 07/23/181953 ADM IN [place] [id number] [place] [address]
[~2018-07-22 13:05] MED LIST changes: +CARDIZEM CD120 MG PO; +METOPROLOL TART50 MG PO; +TESSALON PERLE100 MG PO
[2018-07-22 13:40] LABS: BASOPHILS 0.7 % (0-2); EOSINOPHILS 9.7 % (0-7); HEMATOCRIT 33.5 % (36.0-48.0); HEMOGLOBIN 10.8 g/dL (12-16); IMMATURE GRANULOCYTES 0.3 % (0-5); LYMPHOCYTES 10.1 % (15-50); MCH 32.7 pg (26.0-34.0); MCHC 32.2 g/dL (31.0-37.0); MCV 101.5 fL (80.0-100.0); MEAN PLATELET VOLUME 10.2 fL (7.4-10.4); NEUTROPHILS 71.2 % (40-80); PLATELET COUNT 202 10x3/uL (130-400); RDW 13.5 % (11.5-14.5); WBC 9.7 10x3/uL (4.8-10.8)
[2018-07-22 13:57] LABS: APTT 27.4 SECONDS (22.8-39.4); INR 0.97 (0.85-1.17); PROTIME 12.4 SECONDS (11.6-15.0)
[2018-07-22 14:05] LABS: ALBUMIN 3.8 g/dL (3.4-5.0); ALKALINE PHOSPHATASE 231 U/L (46-116); ALT (SGPT) 17 U/L (10-68); BILIRUBIN - TOTAL 0.56 mg/dL (0.2-1.3); CALC OSMOLALITY 290 mosm/kg (275-300); CALCIUM 8.8 mg/dL (8.5-10.1); CARBON DIOXIDE 26.8 mmol/L (21.0-32.0); CHLORIDE - SERUM 98 mmol/L (98-107); CREATININE - SERUM 4.2 mg/dL (0.6-1.3); POTASSIUM - SERUM 4.1 mmol/L (3.5-5.1); PROTEIN - SERUM 8.5 g/dL (6.4-8.2); SODIUM 138 mmol/L (136-145); UREA NITROGEN 26 mg/dL (7-18); eGFR NON AFRICAN AMERICAN 12 mL/min (90-120)
[2018-07-22 14:08] LABS: GLUCOSE 272 mg/dL (74-106)
[2018-07-22 14:14] LABS: CKMB 1.4 U/L (0.0-3.6); CREATINE KINASE 106 UL (21-215); PRO BNP 13122 pg/mL (0-125); TROPONIN-I 0.021 ng/mL (0.000-0.060)
--- NOTE | 2018-07-22 20:15 | NUR ---
RECEIVED FROM ER, PT IS A&O, PLACED ON [id number],02-2L, IV-R.HAND, HISTORY AND MEDS COMPLETE, PROVIDE A SANDWICH AND DRINK, BED IS LOW, SRX2, CALL LIGHT IN REACH, WILL CONTINUE PLAN OF CARE
[2018-07-22] MEDS ORDERED: RENVELA800 MG PO (20:21)
[2018-07-22] MEDS ORDERED: CATAPRES0.1 MG PO (20:22)
[2018-07-23] VITALS: BP 155/74
--- NOTE | 2018-07-23 03:20 | NUR ---
SLEEPING, BED IS LOW, SRX2, CALL LIGHT IN REACH, WILL CONTINUE PLAN OF CARE
[2018-07-23 04:00] VITALS: BP 157/85
--- NOTE | 2018-07-23 04:17 | NUR ---
INCREASED PATIENTS OXYGEN TO 3LPM FOR A PO2 OF 61
[2018-07-23 05:24] VITALS: BP 192/81; BMI 20.4
[2018-07-23 06:04] LABS: ALBUMIN 3.6 g/dL (3.4-5.0); ANION GAP 17.7 mmol/L (8-16); BILIRUBIN - TOTAL 0.65 mg/dL (0.2-1.3); CALCIUM 8.9 mg/dL (8.5-10.1); CARBON DIOXIDE 25.6 mmol/L (21.0-32.0); MAGNESIUM - SERUM 2.3 mg/dL (1.8-2.4); PHOSPHOROUS 1.9 mg/dL (2.5-4.9); POTASSIUM - SERUM 4.3 mmol/L (3.5-5.1); PROTEIN - SERUM 8.2 g/dL (6.4-8.2)
[2018-07-23 06:05] LABS: CREATININE - SERUM 5.9 mg/dL (0.6-1.3)
--- NOTE | 2018-07-23 07:00 | NUR ---
RECEIVED REPORT. ASSUMED CARE OF PATIENT. PATIENT AMBULATING OUT OF ROOM TO NURSES STATION. PATIENT IS READY TO TAKE A SHOWER. DENIES NEEDS. NO DISTRESS.
--- NOTE | 2018-07-23 09:00 | NUR ---
SHOWER COMPLETE. RESTING IN BED. MALE VISITOR AT BEDSIDE. NO DISTRESS.
[2018-07-23 09:46] VITALS: BMI 20.3
[2018-07-23 10:08] VITALS: BP 169/78
--- NOTE | 2018-07-23 11:51 | NUR ---
FSBS 523. PAGED DIANNE. AWAITING CALL BACK. URGENT ORDER PLACED FOR GLUCOSE FROM LAB. LAB BEING DRAWN AT THIS TIME. WILL ADMINISTER INSULIN AFTER CONFIRMATION FROM LAB WHAT THE GLUCOSE LEVEL IS.
[2018-07-23 11:52] VITALS: Ht 172.7 cm; Wt 60.8 kg
--- NOTE | 2018-07-23 12:16 | NUR ---
GLUCOSE RESULTED FROM LAB AT 494. 28 UNITS HUMULIN ADMINISTERED PER SLIDING SCALE. AWAITING CALL BACK FOR ADDITIONAL ORDERS. PATIENT IN NO DISTRESS. CONSUMING NOON MEAL AT THIS TIME.
--- NOTE | 2018-07-23 17:07 | NUR ---
FSBS 211. PATIENT WOULD ONLY ALLOW 4 UNITS TO BE ADMINISTERED SINCE WE HAVE RESTARTED HER GLIPIZIDE AT THIS TIME. CONSUMING PM MEAL. NO DISTRESS.
[2018-07-23 18:55] VITALS: BP 145/69
--- NOTE | 2018-07-23 19:39 | NUR ---
RECEIVED REPORT, WILL ASSUME CARE OF PT, DENIES ANY NEEDS AT THIS TIME, BED IS LOW, SRX2, CALL LIGHT IN REACH, WILL CONTINUE PLAN OF CARE
[2018-07-23 20:00] VITALS: BP 172/78
[2018-07-24] VITALS: BP 154/76
--- NOTE | 2018-07-24 03:19 | NUR ---
I have reviewed this patient and I concur with the Shift Assessment completed by the Licensed Practical Nurse today this shift.
[2018-07-24 04:00] VITALS: BP 165/76
--- NOTE | 2018-07-24 07:10 | NUR ---
REPORT RECEVIED FROM ASSEMBLER MOVEMENT AND PATIENT CARE ASSUMED. PATIENT LAYING IN BED ON BACK AWAKE, ALERT AND ORIENTD X 4. PATIENT IS STABLE AND VSS. PATIENT DENIES ANY NEEDS OR PAIN. WILL CONTINUE WITH PLAN OF CARE. SR UPX 2 BED IN LOW POSITION AND CALL LIGHT IN REACH.
[2018-07-24 08:11] LABS: ALBUMIN 3.8 g/dL (3.4-5.0); ANION GAP 23.1 mmol/L (8-16); BILIRUBIN - TOTAL 0.78 mg/dL (0.2-1.3); CALCIUM 9.2 mg/dL (8.5-10.1); CARBON DIOXIDE 22.7 mmol/L (21.0-32.0); MAGNESIUM - SERUM 2.3 mg/dL (1.8-2.4); PHOSPHOROUS 4.8 mg/dL (2.5-4.9); POTASSIUM - SERUM 4.8 mmol/L (3.5-5.1); PROTEIN - SERUM 8.1 g/dL (6.4-8.2)
[2018-07-24 08:12] LABS: CREATININE - SERUM 8.9 mg/dL (0.6-1.3)
[2018-07-24 08:51] VITALS: BP 162/68
[2018-07-24 12:07] VITALS: BP 159/68
--- NOTE | 2018-07-24 13:00 | NUR ---
PATIENT IV INFILLTRATED. SPOKE WITH DR. CORTEZ ON PHONE. OK TO DC AND SWITCH ALL MEDS TO PO.
[2018-07-24 16:59] VITALS: BP 140/70
--- NOTE | 2018-07-24 18:25 | NUR ---
PATIENT SITTING UP IN BS CHAIR. PATIENT IS STABLE AND UNCHANGED. PATIENT DENIES ANY NEEDS OR PAIN. WILL CONTINUE TO MONITOR. CALL LIGHT IN REACH.
--- NOTE | 2018-07-24 19:45 | NUR ---
EVENING ROUNDS COMPLETED. REPORT RECEIVED. PT SITTING UP IN BED WITH EYES OPEN, RR EVEN AND UNLABORED. OXYGEN AT 4 LITERS BY NASAL CANNULA. BED IN LOW POSITION. NO S/S OF DISTRESS NOTED. DC'ED PT ORDERED HYDROCODONE COUGH SYRUP PT STATES SHE IS ALLERGIC TO HYDROCODONE. WILL NOTIFY ONCOMING NURSE. PT STATES SHE HAS COMPLAINTS OF HEADACHE. CURRENTLY AWAITING CALL BACK FROM DIANNE SHIPLEY. CALL LIGHT IN REACH. WILL CTM.
[2018-07-24 20:00] VITALS: BP 171/78
--- NOTE | 2018-07-24 20:12 | NUR ---
RECEIVED CALL BACK FROM DIANNE SHIPLEY NURSE PRACTICIONER, IFNORMED HER OF LACK OF PT IV ACCESS FOR ROCEPHIN TO BE ADMINISTERED. SHE ORDERED OMNICEF CAP ONCE DAILY. IN ADDITION FOR PT COMPLAINTS OF HEADACHE SHE ORDERED 500 MG OF ACETAMINOPHEN TAB EVERY 6 HOURS NEEDED
--- NOTE | 2018-07-24 23:45 | NUR ---
EVENING ROUNDS COMPLETED. PT REFUSED ORDERED ACETAMINOPHEN FOR COMPLAINTS OF HEADACHE. STATING CONCERNS FOR HER LIVER. 355 BLOOD SUGAR TREATED ORDERED PER SLIDING SCALE. PT DENIES FURTHER NEEDS AT THIS TIME. NIGHT TIME MEDICATIONS ADMINISTERED WITHOUT ISSUE. CALL LIGHT IN REACH. WILL CTM.
[2018-07-25] VITALS: BP 180/77
--- NOTE | 2018-07-25 03:59 | NUR ---
I have reviewed this patient and I concur with the Shift Assessment completed by the Licensed Practical Nurse today this shift.
[2018-07-25 04:00] VITALS: BP 169/75
[2018-07-25 06:07] LABS: ALBUMIN 3.3 g/dL (3.4-5.0); ANION GAP 21.9 mmol/L (8-16); BILIRUBIN - TOTAL 1.16 mg/dL (0.2-1.3); CALCIUM 8.4 mg/dL (8.5-10.1); CARBON DIOXIDE 23.6 mmol/L (21.0-32.0); CREATININE - SERUM 10.4 mg/dL (0.6-1.3); MAGNESIUM - SERUM 2.3 mg/dL (1.8-2.4); PHOSPHOROUS 5.2 mg/dL (2.5-4.9); POTASSIUM - SERUM 5.5 mmol/L (3.5-5.1)
[2018-07-25 08:00] VITALS: BP 156/78
--- NOTE | 2018-07-25 08:00 | NUR ---
PT RESTING IN BED, SHIFT ASSESSMENT PERFORMED. DENIES ANY NEEDS AT THIS TIME, WILL CONT TO FOLLOW POC
[2018-07-25 12:12] VITALS: BP 167/85
[2018-07-25] MEDS ORDERED: ZITHROMAX250 MG PO (12:54)
[2018-07-25] MEDS ORDERED: OMNICEF300 MG PO (12:54)
[2018-07-25] MEDS ORDERED: PROTONIX40 MG PO (12:54)
[2018-07-25] MEDS ORDERED: STERAPRED DS 1210 MG PO (12:55)
--- NOTE | 2018-07-25 15:57 | MORECARE ---
CASE MANAGEMENT DISCHARGE SUMMARY PATIENT: JYOTSNA JULIAN UNIT: [id number] ADM DATE: 07/22/18 AGE: 53 : 63 SEX: F ROOM/BED: D.2134 AUTHOR: ORQUIDEA PRICE PHYSICIAN: REFERRING PHYSICIAN: ABHI LANGE DO DATE OF SERVICE: 07/25/18 Discharge Plan Patient Name: JYOTSNA JULIAN Facility: [facility]:[place] : 1965 Planned Disposition: Home Anticipated Discharge Date: 07/25/18 Discharge Date: Expected LOS: 3 Initial Reviewer: [email or web address] Initial Review Date: 07/22/2018 Generated: 07/25/18 4:57 pm Patient Name: JYOTSNA JULIAN Page [id number] at 1557 All edits/amendments must be made on the electronic document DICTATION DATE: 07/25/181556 REGIONAL OPERATIONS MANAGER: IVETTE 07/25/181556 RPT#: [id number] DC DATE: STATUS: ADM IN [facility] [address] [place] [address] END OF REPORT
--- NOTE | 2018-07-25 16:08 | MORECARE ---
CASE MANAGEMENT DISCHARGE SUMMARY PATIENT: JYOTSNA JULIAN UNIT: [id number] ADM DATE: 07/22/18 AGE: 53 : 63 SEX: F ROOM/BED: D.2334 AUTHOR: DEEDOC PHYSICIAN: REFERRING PHYSICIAN: ABHI LANGE DO DATE OF SERVICE: 07/25/18 Discharge Plan Patient Name: JYOTSNA JULIAN Facility: [facility]:[place] : 1965 Planned Disposition: Home Anticipated Discharge Date: 07/25/18 Discharge Date: Expected LOS: 3 Initial Reviewer: [email or web address] Initial Review Date: 07/22/2018 Generated: 07/25/18 5:08 pm Comments DCP- Discharge Planning Updated by [email or web address]: Amrik Bingham on 07/25/18 3:[address] Patient Name: JYOTSNA JULIAN Admission Status: ER Accout number: [id number] Admission Date: 07-22-2018 : 1965 Admission Diagnosis: Attending: ABHI LANGE Current LOS: 3 Anticipated DC Date: 07-25-2018 Planned Disposition: Home Primary Insurance: MEDICARE A & B Discharge Planning Comments: CM MET WITH PT IN ROOM TO DISCUSS DISCHARGE PLANNING AND NEEDS. PT REPORTS LIVING AT HOME INDEPENDENTLY WITH HER SPOUSE. PT HAS ROLLING WALKER THAT SHE DOES NOT USE. PT HAS NO MEDICAL EQUIPMENT PROVIDER PREFERENCE AND NO OUTSIDE SERVICES ASSISTING IN THE HOME. PT DOES GO TO OUTPATIENT DIALYSIS, [facility], [facility]15, [facility]; PT DRIVES SELF TO AND FROM DIALYSIS. CM DISCUSSED AVAILABILITY OF HOME HEALTH, REHAB SERVICES AND MEDICAL EQUIPMENT. PT DENIES DISCHARGE NEEDS, REPORTS HER SPOUSE WILL PICK HER UP FOR DISCHARGE HOME. IMPORTANT MESSAGE FROM MEDICARE PROVIDED AND EXPLAINED. New Car Get Ready Mechanic: Amrik Bingham DCPIA - Discharge Planning Initial Assessment Updated by [id number]: Amrik Bingham on 07/25/18 4:01 pm * Is the patient Alert and Oriented? Yes * How many steps to enter\exit or inside your home? * PCP [facility] * Pharmacy [facility] * Preadmission Environment Home with Family * ADLs Independent * Equipment Rolling Walker * Other Equipment NO MEDICAL EQUIPMENT PROVIDER PREFERENCE * List name and contact numbers for known caregivers / representatives who currently or will assist patient after discharge: SATISH JULIAN, SPOUSE, * Verbal permission to speak to the caregivers and representatives has been obtained from the patient. N/A * Community resources currently utilized Other * Please name any agencies selected above. [facility], [facility], [place], 0615AM, DRIVES SELF * Additional services required to return to the preadmission environment? No * Can the patient safely return to the preadmission environment? Yes * Has this patient been hospitalized within the prior 30 days at any hospital? No Coverage Notice Reviewer: [email or web address] Ganga Bingham Notice Issued Date-Time: 07/25/2018 13:30 Notice Type: IM Discharge Notice Notice Delivered To: Patient Relationship to Patient: Cooker Pie Filling Name: Delivery Method: HAND - Hand Delivered Dottie Days: Prior Verbal Notification: Recipient Understood Notice: Yes Recipient Signature: Yes Med Rec Note Co-signed by Attending: Coverage Notice Comment: Last DP export: 07/25/18 2:57 p Patient Name: JYOTSNA JULIAN Page 26244 at 1608 All edits/amendments must be made on the electronic document DICTATION DATE: 07/25/181606 METHODS EXAMINER: IVETTE 07/25/181606 RPT#: [id number] DC DATE: STATUS: ADM IN [facility] [address] [place] [address] END OF REPORT
--- NOTE | 2018-07-25 17:52 | NUR ---
DISCHARGE INSTRUCTIONS REVIEWED WITH PT AND ALL QUESTIONS ANSWERED. TELEMETRY REMOVED AND GIVEN TO RECEPTIONIST CLERK. ASSISTED PT TO FRONT OF HOSPITAL WHERE SHE LEFT WITH HER
--- NOTE | 2018-07-26 08:13 | MORECARE ---
CASE MANAGEMENT DISCHARGE SUMMARY PATIENT: JYOTSNA JULIAN UNIT: [id number] ADM DATE: 07/22/18 AGE: 53 : 63 SEX: F ROOM/BED: D.8436 AUTHOR: DEEDOC PHYSICIAN: REFERRING PHYSICIAN: ABHI LANGE DO DATE OF SERVICE: 07/26/18 Discharge Plan Patient Name: JYOTSNA JULIAN Facility: [facility]:[place] : 1965 Planned Disposition: Home Anticipated Discharge Date: 07/25/18 Discharge Date: 07/25/2018 Expected LOS: 3 Initial Reviewer: [email or web address] Initial Review Date: 07/22/2018 Generated: 07/26/18 9:13 am Comments DCP- Discharge Planning Updated by [email or web address]: Amrik Bingham on 07/25/18 3:[address] Patient Name: JYOTSNA JULIAN Admission Status: ER Accout number: [id number] Admission Date: 07-22-2018 : 1965 Admission Diagnosis: Attending: ABHI LANGE Current LOS: 3 Anticipated DC Date: 07-25-2018 Planned Disposition: Home Primary Insurance: MEDICARE A & B Discharge Planning Comments: CM MET WITH PT IN ROOM TO DISCUSS DISCHARGE PLANNING AND NEEDS. PT REPORTS LIVING AT HOME INDEPENDENTLY WITH HER SPOUSE. PT HAS ROLLING WALKER THAT SHE DOES NOT USE. PT HAS NO MEDICAL EQUIPMENT PROVIDER PREFERENCE AND NO OUTSIDE SERVICES ASSISTING IN THE HOME. PT DOES GO TO OUTPATIENT DIALYSIS, [facility], [facility]15, [facility]; PT DRIVES SELF TO AND FROM DIALYSIS. CM DISCUSSED AVAILABILITY OF HOME HEALTH, REHAB SERVICES AND MEDICAL EQUIPMENT. PT DENIES DISCHARGE NEEDS, REPORTS HER SPOUSE WILL PICK HER UP FOR DISCHARGE HOME. IMPORTANT MESSAGE FROM MEDICARE PROVIDED AND EXPLAINED. Cartographic Engineer: Amrik Bingham DCPIA - Discharge Planning Initial Assessment Updated by [id number]: Amrik Bingham on 07/25/18 4:01 pm * Is the patient Alert and Oriented? Yes * How many steps to enter\exit or inside your home? * PCP [facility] * Pharmacy [facility] * Preadmission Environment Home with Family * ADLs Independent * Equipment Rolling Walker * Other Equipment NO MEDICAL EQUIPMENT PROVIDER PREFERENCE * List name and contact numbers for known caregivers / representatives who currently or will assist patient after discharge: SATISH JULIAN, SPOUSE, * Verbal permission to speak to the caregivers and representatives has been obtained from the patient. N/A * Community resources currently utilized Other * Please name any agencies selected above. [facility], [facility], MWF, 0615AM, DRIVES SELF * Additional services required to return to the preadmission environment? No * Can the patient safely return to the preadmission environment? Yes * Has this patient been hospitalized within the prior 30 days at any hospital? No Coverage Notice Reviewer: [email or web address] Ganga Bnigham Notice Issued Date-Time: 07/25/2018 13:30 Notice Type: IM Discharge Notice Notice Delivered To: Patient Relationship to Patient: Metal Bumper Name: Delivery Method: HAND - Hand Delivered Dottie Days: Prior Verbal Notification: Recipient Understood Notice: Yes Recipient Signature: Yes Med Rec Note Co-signed by Attending: Coverage Notice Comment: Last DP export: 07/25/18 3:08 p Patient Name: JYOTSNA JULIAN Page [phone] at 0813 All edits/amendments must be made on the electronic document DICTATION DATE: 07/26/18811 FAX MACHINE REPAIRER: IVETTE 07/26/18811 RPT#: [id number] DC DATE:07/25/18 STATUS: DIS IN [facility] [address] [place] [address] END OF REPORT
== END 2018-07-25 17:53 | disposition home or self-care (01) | DRG 189 ==
LOC: D.ER 13:05 → D.M2 18:39
PROVIDERS: Emergency Medicine; ADMIT Family Medicine; ATTEND Family Medicine
PROC: 5A1D70Z Performance of Urinary Filtration, Intermittent, Less than 6 Hours Per Day (ICD-10-PCS; principal; 2018-07-25)
DX: J96.21 Acute and chronic respiratory failure with hypoxia (principal); N18.6 End stage renal disease; D59.3 Hemolytic-uremic syndrome; I13.2 Hypertensive heart and chronic kidney disease with heart failure and with stage 5 chronic kidney disease, or end stage renal disease; E11.22 Type 2 diabetes mellitus with diabetic chronic kidney disease; E11.65 Type 2 diabetes mellitus with hyperglycemia; Z99.2 Dependence on renal dialysis; D53.9 Nutritional anemia, unspecified; I48.91 Unspecified atrial fibrillation; K21.9 Gastro-esophageal reflux disease without esophagitis; J40 Bronchitis, not specified as acute or chronic; J43.9 Emphysema, unspecified; I50.9 Heart failure, unspecified; Z87.891 Personal history of nicotine dependence

== ENCOUNTER 2018-08-04 17:35 | Inpatient (IN) | payer MEDICARE, BC ==
[~2018-08-04 17:35] MED LIST changes: +CATAPRES0.1 MG PO; +OMNICEF300 MG PO; +PROTONIX40 MG PO; +RENVELA800 MG PO; +STERAPRED DS 1210 MG PO; +ZITHROMAX250 MG PO
[2018-08-04] MEDS ORDERED: CARDIZEM120 MG PO (17:45)
[2018-08-04] MEDS ORDERED: BETAPACE 80 MG80 MG PO (17:45)
[2018-08-04 19:20] VITALS: BP 136/66
[2018-08-04 19:43] LABS: ALBUMIN 3.1 g/dL (3.4-5.0); ANION GAP 14.8 mmol/L (8-16); BILIRUBIN - TOTAL 0.35 mg/dL (0.2-1.3); CALCIUM 7.6 mg/dL (8.5-10.1); CARBON DIOXIDE 28.2 mmol/L (21.0-32.0); CREATININE - SERUM 7.1 mg/dL (0.6-1.3); PROTEIN - SERUM 6.4 g/dL (6.4-8.2)
[2018-08-04 19:46] LABS: TROPONIN-I 0.038 ng/mL (0.000-0.060)
[2018-08-04 21:10] VITALS: BP 127/75; BMI 22.2
[2018-08-05 00:15] VITALS: BP 116/62
[2018-08-05 04:00] VITALS: BP 154/69
[2018-08-05 06:52] LABS: TROPONIN-I 0.035 ng/mL (0.000-0.060)
--- NOTE | 2018-08-05 07:30 | NUR ---
A/A/OX4. NO REQUESTS VOICED AND DENIES ANY PAIN OR DISCOMFORT. UP AND ABOUT IN HER ROOM WITHOUT DIFFICULTY AND AT BEDSIDE. ASSESSMENT COMPLETED AND WILL CONTINUE POC.
[2018-08-05 07:45] LABS: ANION GAP 18.6 mmol/L (8-16); CALCIUM 7.9 mg/dL (8.5-10.1); CREATININE - SERUM 8.1 mg/dL (0.6-1.3); POTASSIUM - SERUM 5.6 mmol/L (3.5-5.1)
[2018-08-05 07:58] LABS: BASOPHILS 0.3 % (0-2); EOSINOPHILS 3.2 % (0-7); HEMATOCRIT 28.1 % (36.0-48.0); HEMOGLOBIN 9.2 g/dL (12-16); IMMATURE GRANULOCYTES 0.5 % (0-5); LYMPHOCYTES 24.6 % (15-50); MCH 32.9 pg (26.0-34.0); MCHC 32.7 g/dL (31.0-37.0); MCV 100.4 fL (80.0-100.0); MEAN PLATELET VOLUME 9.9 fL (7.4-10.4); MONOCYTES 7.8 % (2-11); NEUTROPHILS 63.6 % (40-80); PLATELET COUNT 191 10x3/uL (130-400); RDW 14.1 % (11.5-14.5); WBC 9.4 10x3/uL (4.8-10.8)
[2018-08-05 08:12] VITALS: BP 131/66
--- NOTE | 2018-08-05 12:04 | NUR ---
I have reviewed this patient and I concur with the Shift Assessment completed by the Licensed Practical Nurse today this shift.
[2018-08-05 12:41] VITALS: BMI 22.2
--- NOTE | 2018-08-05 14:35 | NUR ---
RETURNED FROM DIALYSIS AND REQUESTING DISCHARGE. LALY CONTACTED AND ORDERS RECEIVED. DISCHARGE INSTRUCTIONS REVIEWED WITH PT AND HER WITH UNDERSTAING VERBALIZED. SL REMOVED WITHOUT DIFFICULTY AND TIP INTACT. LEFT FLOOR AMB PER HER REQUEST. HAS ALL PERSONAL BELONGINGS AND LEFT FACILITY VIA PRIVATE VEHICLE WITH HER .
--- NOTE | 2018-08-05 15:18 | MORECARE ---
CASE MANAGEMENT DISCHARGE SUMMARY PATIENT: JYOTSNA JULIAN UNIT: [id number] ADM DATE: 08/04/18 AGE: 53 : 63 SEX: F ROOM/BED: D.9026 AUTHOR: ORQUIDEA PRICE PHYSICIAN: REFERRING PHYSICIAN: DAVIE RODRIGUEZ MD DATE OF SERVICE: 08/05/18 Discharge Plan Patient Name: JYOTSNA JULIAN Facility: [facility]:[place] : 1965 Planned Disposition: Home Anticipated Discharge Date: 08/05/18 Discharge Date: 08/05/2018 Expected LOS: 1 Initial Reviewer: [email or web address] Initial Review Date: 08/05/2018 Generated: 08/05/18 4:18 pm DCPIA - Discharge Planning Initial Assessment Updated by [id number]: Amrik Bingham on 08/05/18 3:17 pm * Is the patient Alert and Oriented? Yes * How many steps to enter\exit or inside your home? NONE * PCP [facility] * Pharmacy [facility] * Preadmission Environment Home with Family * ADLs Independent * Equipment Rolling Walker * Other Equipment NO MEDICAL EQUIPMENT PROVIDER PREFERENCE * List name and contact numbers for known caregivers / representatives who currently or will assist patient after discharge: SATISH JULIAN, SPOUSE, * Verbal permission to speak to the caregivers and representatives has been obtained from the patient. Yes * Community resources currently utilized Other * Please name any agencies selected above. [facility]IENT [facility], [facility], [place], 0615 * Additional services required to return to the preadmission environment? No * Can the patient safely return to the preadmission environment? Yes * Has this patient been hospitalized within the prior 30 days at any hospital? Yes Patient Name: JYOTSNA JULIAN Page 93242 at 1518 All edits/amendments must be made on the electronic document DICTATION DATE: 08/05/181517 VICE PRESIDENT LENDING: IVETTE 08/05/18 1518 RPT#: [id number] DC DATE:08/05/18 STATUS: DIS IN [facility] [address] [facility] [place] [address] END OF REPORT
--- NOTE | 2018-08-05 15:36 | MORECARE ---
CASE MANAGEMENT DISCHARGE SUMMARY PATIENT: JYOTSNA JULIAN UNIT: [id number] ADM DATE: 08/04/18 AGE: 53 : 63 SEX: F ROOM/BED: D.3715 AUTHOR: ORQUIDEA PRICE PHYSICIAN: REFERRING PHYSICIAN: DAVIE AGUSTIN MD DATE OF SERVICE: 08/05/18 Discharge Plan Patient Name: JYOTSNA JULIAN Facility: [facility]:[place] : 1965 Planned Disposition: Home Anticipated Discharge Date: 08/05/18 Discharge Date: 08/05/2018 Expected LOS: 1 Initial Reviewer: [email or web address] Initial Review Date: 08/05/2018 Generated: 08/05/18 4:35 pm Comments DCP- Discharge Planning Updated by [email or web address]: Amrik Bingham on 08/05/18 2:[address] Patient Name: JYOTSNA JULIAN Admission Status: ER Accout number: [id number] Admission Date: 08-04-2018 : 1965 Admission Diagnosis: Attending: Davie Agustin Current LOS: 1 Anticipated DC Date: 08-05-2018 Planned Disposition: Home Primary Insurance: MEDICARE A & B Discharge Planning Comments: CM MET WITH PT IN ROOM TO DISCUSS DISCHARGE PLANNING AND NEEDS. PT REPORTS LIVING AT HOME INDEPENDENTLY WITH HER SPOUSE. PT HAS A ROLLING WALKER WITH NO MEDICAL EQUIPMENT PROVIDER PREFERENCE. PT HAS NO OUTSIDE SERVICES ASSISTING IN THE HOME. PT GOES TO [facility] [place], [facility], 0615AM, PT DRIVES SELF TO AND FROM DIALYSIS. CM DISCUSSED AVAILABILITY OF HOME HEALTH, REHAB SERVICES AND MEDICAL EQUIPMENT. PT DENIES DISCHARGE NEEDS, REPORTS HER SPOUSE IS HERE TO PICK HER UP FOR DISCHARGE HOME. Diving Instructor: Amrik Bingham DCPIA - Discharge Planning Initial Assessment Updated by [id number]: Amrik Bingham on 08/05/18 3:17 pm * Is the patient Alert and Oriented? Yes * How many steps to enter\exit or inside your home? NONE * PCP [facility] * Pharmacy [facility] * Preadmission Environment Home with Family * ADLs Independent * Equipment Rolling Walker * Other Equipment NO MEDICAL EQUIPMENT PROVIDER PREFERENCE * List name and contact numbers for known caregivers / representatives who currently or will assist patient after discharge: SATISH JULIAN, SPOUSE, * Verbal permission to speak to the caregivers and representatives has been obtained from the patient. Yes * Community resources currently utilized Other * Please name any agencies selected above. [facility]PATIENT [facility], [facility], [facility], 0658 * Additional services required to return to the preadmission environment? No * Can the patient safely return to the preadmission environment? Yes * Has this patient been hospitalized within the prior 30 days at any hospital? Yes Last DP export: 08/05/18 2:18 p Patient Name: JYOTSNA JULIAN Page 81954 at 1536 All edits/amendments must be made on the electronic document DICTATION DATE: 08/05/18 1535 CREDIT PORTFOLIO ADVISOR: IVETTE 08/05/185 RPT#: [id number] DC DATE:08/05/18 STATUS: DIS IN [facility] [address] [place] [address] END OF REPORT
--- NOTE | 2018-08-08 09:50 | CN ---
PATIENT NAME:JYOTSNA HOPE MEDICAL RECORD: [id number] : [birth year] LOCATION:D.M2 D.2135 ADMIT DATE: 08/04/18 ACCOUNT: [id number] CONSULTING PHYSICIAN: WILMER BERGMAN MD REFERRING PHYSICIAN: DAVIE RODRIGUEZ MD DATE OF CONSULTATION: 08/05/2018 CARDIOLOGY CONSULTATION DATE OF SERVICE: 08/05/2018 DIAGNOSES: 1. Angina. 2. Coronary artery disease. 3. Previous percutaneous transluminal coronary angioplasty stent. 4. Abnormal ECG. 5. Paroxysmal atrial fibrillation. 6. Hypertension. 7. Bradycardia. 8. End-stage renal failure, on dialysis. 9. Diabetes. HISTORY OF PRESENT ILLNESS: Mrs. Hope has been seen by renal as well as cardiology over the past few weeks. She has been having episodes of atrial fibrillation. She has had the addition of multiple medications. Currently, she is on diltiazem 120 mg b.i.d., Cardura 2 mg b.i.d., metoprolol 100 mg b.i.d., sotalol 80 mg b.i.d. She came in with systolic blood pressure of 70 and heart rate junctional in 40s. Since then, her sotalol has been held. Her Cardizem has been held. She is now with heart rates in the 60s, sinus. Systolic blood pressure in the 130s and is totally asymptomatic. She was having chest pain. She has T-wave inversions on her EKG. Her last stent was a number of years ago. PHYSICAL EXAMINATION: GENERAL APPEARANCE: Well-nourished, well-developed, appears stated age. Level of distress, comfortable. PSYCHIATRIC: Mental status, alert, normal affect. Orientation, oriented to time, place and person. EYES: Lids and conjunctiva, noninjected. No discharge, no pallor. ENT: Lips, teeth, gums, normal dentition. Oropharynx, no cyanosis, no pallor. NECK: Carotid arteries, bilateral normal upstroke, no bruits, no thrills. JUGULAR VEINS: No jugular venous pressure or distention. CERVICAL LYMPH NODES: Nontender, nonenlarged. THYROID: Not enlarged. Nontender. No nodules. LUNGS: Respiratory effort, unlabored. CHEST: Normal curvature. No thoracic deformity. No chest wall tenderness. Percussion, resonant. Auscultation, clear. No wheezes, no rales, no rhonchi. CARDIOVASCULAR: Precordial exam, nondisplaced. No heaves or pericardial thrills. Rate and rhythm, regular. Heart sounds, normal S1, normal S2. No S3, no gallop, no rub. Systolic murmur, not heard. Diastolic murmur, not heard. EXTREMITIES: No cyanosis, no edema. Peripheral pulses, full and equal in all extremities, except as noted. No bruits appreciated. ABDOMEN: Soft, nondistended. Normal aorta. No bruit. Nontender. No masses. Liver, nontender, no hepatomegaly. Spleen, nontender, no splenomegaly. MUSCULOSKELETAL: No joint tenderness. No joint swelling. No erythema. NEUROLOGICAL: Normal gait, normal strength, normal tone. CONSULT REPORT [id number] JYOTSNA HOPE SKIN: Warm and dry. OVERALL IMPRESSION: Junctional bradycardia and hypotension. This is the main etiology for symptomatology, may be ischemic as well due to her significantly abnormal ECG. At this time, we would discontinue the metoprolol. Continue the diltiazem, sotalol to keep her in rhythm, continue the Cardura as well as blood pressure tolerates it, and we will set her up for risk stratification with stress testing Cardiolite imaging as an outpatient. TRANSINT:[id number] Voice Confirmation ID: [id number] DOCUMENT ID: [id number] WILMER BERGMAN MD at 0950 CC: [id number] DICTATION DATE: 08/05/18935 MACHINE PECAN PICKER: 08/05/18 1206 DIS IN 08/05/18 [place] [address] [place] [address]
== END 2018-08-05 14:37 | disposition home or self-care (01) | DRG 314 ==
LOC: D.ER 17:35 → D.M2 18:49
PROVIDERS: Emergency Medicine; ADMIT Internal Medicine Nephrology; ATTEND Internal Medicine Nephrology
DX: I95.9 Hypotension, unspecified (principal); N18.6 End stage renal disease; I12.0 Hypertensive chronic kidney disease with stage 5 chronic kidney disease or end stage renal disease; N25.81 Secondary hyperparathyroidism of renal origin; R00.1 Bradycardia, unspecified; E11.22 Type 2 diabetes mellitus with diabetic chronic kidney disease; I48.91 Unspecified atrial fibrillation; I25.119 Atherosclerotic heart disease of native coronary artery with unspecified angina pectoris; K21.9 Gastro-esophageal reflux disease without esophagitis; D63.1 Anemia in chronic kidney disease; E83.39 Other disorders of phosphorus metabolism; Z79.01 Long term (current) use of anticoagulants

== ENCOUNTER → 2018-08-09 09:34 | Outpatient (CLI) | payer MEDICARE, BC ==
[2018-08-05 12:41] VITALS: BMI 22.2
--- NOTE | ~2018-08-09 | ST ---
PATIENT:JYOTSNA JULIAN MEDICAL RECORD: [id number] SEX: F LOCATION:[facility] ORDER #: ADMISSION DATE: 08/09/18 AGE OF PATIENT: 53 REFERRING PHYSICIAN: INTERPRETING PHYSICIAN: WILMER BERGMAN MD DATE OF SERVICE: 08/09/2018 Nuclear Stress Test INDICATION: Angina, coronary artery disease, abnormal ECG, diabetes, hypertension. She was exercised standard Lexiscan protocol with 32 mCi of sestamibi injected at peak stress, 11 mCi used previously for rest images. FINDINGS: Gated SPECT reveals preserved ejection fraction at 67% with good wall motion thickening and brightening throughout all segments. SPECT imaging Cardiolite was used as myocardial perfusion agent. There is a large area of ischemia anteriorly, laterally, and apically includes basal, mid apical anterior segments of the apical lateral, mid lateral basal lateral segments of the apex itself. The degree of reversibility is mild. The amount of myocardial involved is large. OVERALL IMPRESSION: This is a high risk abnormal nuclear stress test with large amount of myocardium at risk of ischemia anteriorly, laterally, and apically, suggestive of hemodynamically significant coronary artery disease and possibly multivessel disease. We will proceed with coronary angiography as followup study. TRANSINT:[id number] Voice Confirmation ID: [id number] DOCUMENT ID: [id number] WILMER BERGMAN MD CC: SATISH MUJICA MD [id number] DICTATION DATE: 08/10/181809 POULTRY CLEANER: 08/11/18 0401 DEP CLI 08/09/18 [place] [id number] [place] [id number]
[~2018-08-09 09:34] MED LIST changes: +BETAPACE 80 MG80 MG PO; +CARDIZEM120 MG PO
== END | disposition home or self-care (01) ==
LOC: D.HCCARDIO 09:34
PROVIDERS: ATTEND Internal Medicine Interventional Cardiology
DX: I25.10 Atherosclerotic heart disease of native coronary artery without angina pectoris (principal)

== ENCOUNTER 2018-08-18 09:52 | Outpatient (CLI) | payer MEDICARE, BC ==
[~2018-08-18] VITALS: Ht 172.7 cm; Wt 63.6 kg
--- NOTE | ~2018-08-18 | HEMODYNAMI ---
PATIENT:JYOTSNA JULIAN MEDICAL RECORD: [id number] : 63 LOCATION:[facility] ADMISSION DATE: 08/18/18 Generatedon:08/18/201812:30 Patient name: JYOTSNA JULIAN Patient #: [id number] SSN: DO B: 1965 Date of study: 08/18/2018 Page: Of Hemodynamic Procedure Report Patient Data Patient Demographics Procedure consent was obtained First Name: JYOTSNA Gender: Female Last Name: ELIEL : 1965 Middle Initial: CARSNO Age: 53 year(s) Patient #: [id number] Race: Additional ID: [id number] Contact details [address]: [address] [place] [address] State: [place] City: [place] Zip code: [address] Past Medical History Allergies Allergen Reaction Date Comments Reported Other allergy 07/10/2014 iv contrast, accupril, hydrocodone Admission Admission Data Admission Date: 08/18/2018 Admission Time: 9:52 Lab Results Lab Result Date: 08/18/2018 Lab Result Time: 0:00 Biochemistry Name Units Result Min Max BUN mg/dl 51 --(----)-* 7 18 Creatinine mg/dl 6.5 --(----)-* 0.6 1.3 CBC Name Units Result Min Max Hemoglobin g/dl 10.3 *-(----)-- 13.5 17.5 Procedure Procedure Types Cath Procedure Diagnostic Procedure LHC LH w/Coronaries PCI Procedure Coronary Stent Coronary Stent Initial Procedure Description Procedure Date Procedure Date: 08/18/2018 Procedure Start Time: 12:12 Procedure End Time: 12:29 Procedure Staff Name Function Jairo Spencer MD Performing Physician Felix Snell RT Monitor Alma Rosa Diaz RT Scrub Sandy Victoria RN Nurse Procedure Data Cath Procedure Fluoroscopy Diagnostic fluoroscopy Total fluoroscopy Time: 2.4 time: 2.4 min min Diagnostic fluoroscopy Total fluoroscopy dose: 553 dose: 553 mGy mGy Contrast Material Contrast Material Type Amount (ml) Isovue 300 90 Entry Location Entry Primary Successful Side Size Upsize Upsize Entry Closure Succes sful Closure Location (Fr) 1 (Fr) 2 (Fr) Remarks Device Remarks Femoral Right 5 Fr 6 Fr Exoseal artery Short Estimated blood loss: 10 ml Diagnostic catheters Device Type Used For End Catheter Placement MULTIPACK Pigtail 5 Fr Procedure catheter MULTIPACK JL 4.0 5Fr Procedure catheter MULTIPACK 3DRC 5Fr Procedure catheter Procedure Medications Medication Administration Route Dosage Oxygen etCO2 Nasal cannula 2 l/min Lidocaine 2% added to field 20 Heparin Flush Bag added to field 2 bags (1000units/500ml NS) 0.9% NaCl I.V. Versed I.V. 2 mg Fentanyl I.V. 50 mcg Versed I.V. 2 mg Fentanyl I.V. 50 mcg Heparin Bolus I.V. 4000 units Integrilin (Bolus I.V. 5.6 ml 2mg/ml) Plavix P.O. 600 mg Hemodynamics Rest HGB: 10.3 (g/dl) Heart Rate: 61 (bpm) Pressure Samples Time Site Value (mmHg) Purpose Heart Use Rate(bpm) 12:12 LV 84/2,6 Snapshot 61 Snapshots Pre Cath Intra NCS Post Cath Vital Signs Time Heart Resp SPO2 etCO2 NIBP (mmHg) Rhythm Pain Sedation Rate (ipm) (%) (mmHg) Status Level (bpm) 11:52:05 61 17 96 0 188/67(112) NSR 0 (11) 10(A) , No pain 11:56:38 60 28 99 31.4 174/67(103) NSR 0 (11) 10(A) , No pain 12:01:10 60 15 98 26.2 182/65(105) NSR 0 (11) 10(A) , No pain 12:05:41 61 22 98 23.2 178/64(99) NSR 0 (11) 10(A) , No pain 12:10:13 62 13 100 27.7 175/59(99) NSR 0 (11) 10(A) , No pain 12:14:39 61 21 100 28.4 158/53(99) NSR 0 (11) 9(A) , No pain 12:19:09 61 13 100 29.2 161/51(92) NSR 0 (11) 9(A) , No pain 12:23:42 62 13 100 4.4 165/51(83) NSR 0 (11) 10(A) , No pain 12:28:10 62 13 100 8.9 169/55(97) NSR 0 (11) 10(A) , No pain Medications Time Medication Route Dose Verified Delivered Reason Notes Effectiveness by by 11:51:51 Oxygen etCO2 2 Jairo Delgado used for Nasal l/min Tj Victoria RN procedure cannula 12:01:10 Lidocaine 2% added 20ml Jairo Gill for local to vial Tj Spencer MD anesthetic field 12:01:15 0.9% NaCl I.V. kvo Jairo Delgado Per physician pt lyles s ml/hr Tj Victoria RN dialysis on mon,wed,fri 12:01:15 Heparin Flush added 2 Jairo Gill used for Bag to bags Tj Spencer MD procedure (1000units/500ml field NS) 12:10:01 Versed I.V. 2 mg Jairo Delgado for sedation Tj Victoria RN 12:10:07 Fentanyl I.V. 50 Jairo Delgado for sedation mcg Tj Victoria RN 12:14:13 Versed I.V. 2 mg Jairo Delgado for sedation Tj Victoria RN 12:14:17 Fentanyl I.V. 50 Jairo Delgado for sedation mcg Tj Victoria RN 12:16:59 Heparin Bolus I.V. 4000 Jairo Delgado for verif ied units Tj Victoria RN anticoagulation with dr spencer 12:17:06 Integrilin I.V. 5.6 Jairo Delgado for waste d 4.4 (Bolus 2mg/ml) ml Tj Victoria RN antiplatelet ml of vial therapy 12:22:59 Plavix P.O. 600 Jairo Delgado for mg Tj Victoria RN antiplatelet therapy Procedure Log Time Note 11:38:03 Informed consent obtained and on chart 11:38:09 Diagnostic Cath Status : Elective 11:38:45 Alma Rosa Diaz RT(R) sent for patient. Start room use. 11:38:45 Time tracking: Regular hours (M-F 7:00 - 5:00) 11:38:50 Plan of Care:Hemodynamics will remain stable., Cardiac rhythm will remain stable., Comfort level will be maintained., Respiratory function will remain adequate., Patient/ family verbilizes understanding of procedure., Procedure tolerated without complication., Recovers from procedure without complications.. 11:46:26 Patient received from Pre/Post Procedure Room to CCL 2 Alert and oriented. Tansferred to table in Supine position. 11:46:30 Warm blankets applied, and tricia hugger turned on for patient comfort. 11:46:32 Correct patient and procedure confirmed by team. 11:50:44 ECG and BP/O2 sat monitors applied to patient. 11:50:45 Vital chart was started 11:50:46 Baseline sample Acquired. 11:50:58 H&P Date Dictated: 08/18/2018 Within 30 days and on chart., H&P Addendum completed by physician on day of procedure. (MUST COMPLETE FOR ALL OUTPATIENTS). 11:50:59 Pre-procedure instructions explained to patient. 11:51:00 Pre-op teaching completed and patient verbalized understanding. 11:51:02 Family in patients room. 11:51:03 Patient NPO since Midnight. 11:51:05 Is the patient allergic to Iodine/contrast media? Yes. 11:51:06 Was the patient premedicated? Yes 11:51:08 Is patient on blood thinner?No 11:51:15 Patient diabetic? Yes. 11:51:26 Previous problem with sedation/anesthesia? No ? 11:51:28 Snore? Yes 11:51:29 Sleep apnea? No 11:51:30 Deviated septum? No 11:51:31 Opens mouth fully? Yes 11:51:31 Sticks out tongue? Yes 11:51:34 Airway obstruction? Yes copd 11:51:41 Dentures? Yes partials 11:51:45 Patient pain scale 0/10 ?. 11:51:50 IV patent on arrival in left forearm with 0.9% NaCl at O. 11:51:51 Oxygen 2 l/min etCO2 Nasal cannula was administered by Sandy Victoria RN; used for procedure; 11:51:51 Lab results completed and on chart. 11:51:55 Right groin area was prepped with chlora-prep and draped in sterile fashion 11:51:55 Alarms reviewed by R. N. 11:51:56 Sharps counted by scrub and verified by R.N. 11:52:58 Pre procedure: right dorsailis pedis pulse Doppler 11:54:39 Lab Result : BUN 51 mg/dl 11:54:39 Lab Result : Hemoglobin 10.3 g/dl 11:54:39 Lab Result : Creatinine 6.5 mg/dl 11:57:04 RESERVED LEFT ARM 12:00:56 Physician paged 12:01:10 Lidocaine 2% 20ml vial added to field was administered by Jairo Spencer MD; for local anesthetic; 12::15 0.9% NaCl kvo ml/hr I.V. was administered by Sandy Victoria RN; Per physician; pt has dialysis on mon,wed,wed 12:01:15 Heparin Flush Bag (1000units/500ml NS) 2 bags added to field was administered by Jairo Spencer MD; used for procedure; 12::38 Rhythm: sinus bradycardia 12::42 Physician arrived 12::43 --------ALL STOP TIME OUT------ 12::43 Final Timeout: patient, procedure, and site verified with staff and physician. All members of the team are in agreement. 12:09:46 Right groin site verified by team. 12:09:50 Fire Safety Assessment: A--An alcohol-based skin anteseptic being used preoperatively., C--Open oxygen or nitrous oxide is being used., D--An ESU, laser, or fiber-optic light is being used. 12:10:01 Versed 2 mg I.V. was administered by Sandy Victoria RN; for sedation; 12:10:03 Physical assessment completed. ASA score P 4 - A patient with severe systemic disease that is a constant threat to life as per Jairo Spencer MD. 12:10:07 Fentanyl 50 mcg I.V. was administered by Sandy Victoria RN; for sedation; 12:10:11 5) <15 or on dialysis Very severe, or end stage kidney failure. 12:10:23 Maximum allowable contrast does (3.7 X eGFR X 0.75)19 ml. 12:10:32 Sedation plan: IV Moderate Sedation Medication:Versed, Fentanyl 12:11:43 Use device set Femoral Dx 12:11:45 ACIST Syringe (55916) opened to sterile field. 12:11:45 Bag Decanter (2002) opened to sterile field. 12:11:46 Medline Cath Pack (FTET32562) opened to sterile field. 12:11:48 ACIST Hand Control (14651) opened to sterile field. 12:11:48 ACIST Manifold (25678) opened to sterile field. 12:11:50 DIAGNOSTIC Multipack 5Fr catheter set (FK2567) opened to sterile field. 12:11:53 SHEATH 5FR [place] (OPR237) opened to sterile field. 12:11:55 EMERALD Guide Wire (502-024) opened to sterile field. 12:12:01 Procedure started. 12:12:01 Full Disclosure recording started 12:12:08 Local anesthetic to right femoral artery with Lidocaine 2% by Jairo Spencer MD.INITIAL ACCESS ONLY 12:12:18 A 5 Fr sheath was inserted into the Right Femoral artery 12:12:25 A MULTIPACK Pigtail 5 Fr catheter was advanced over the wire and used for Procedure. 12:12:36 LV hemodynamics recorded. 12:12:38 LV gram done using ROMEO 12:12:51 EF : 55 % 12:12:54 Catheter removed. 12:13:11 A MULTIPACK JL 4.0 5Fr catheter was advanced over the wire and used for Procedure. 12:13:36 LCA angiography performed. 12:14:13 Versed 2 mg I.V. was administered by Sandy Victoria RN; for sedation; 12:14:17 Fentanyl 50 mcg I.V. was administered by Sandy Victoria RN; for sedation; 12:15:46 Catheter removed. 12:15:51 A MULTIPACK 3DRC 5Fr catheter was advanced over the wire and used for Procedure. 12:15:55 RCA angiography performed. 12:15:56 Catheter removed. 12:16:23 INFLATOR Merit BasixCompak (WT4660) opened to sterile field. 12:16:41 SHEATH 6FR [place] (CUX075) opened to sterile field. 12:16:48 CHOICE PT Extra Support 182cm wire ([id number]) opened to sterile field. 12:16:55 Proceeding to intervention. 12:16:59 Heparin Bolus 4000 units I.V. was administered by Sandy Victoria RN; for anticoagulation; verified with dr spencer 12:17:04 Sheath upsized to a 6 Fr Short. 12:17:06 Integrilin (Bolus 2mg/ml) 5.6 ml I.V. was administered by Sandy Victoria RN; for antiplatelet therapy; wasted 4.4 ml of vial 12:17:15 GUIDE 6FR XBLAD 3.5 catheter ([id number]) opened to sterile field. 12:17:46 Pre PCI Site: [place] pCirc has 90% stenosis. 12:17:55 6 Fr XBLAD 3.5 guide catheter was inserted over the wire 12:18:00 CHOICE wire advanced. 12:18:45 Wire advanced across lesion. 12:19:33 Procedure type changed to Cath procedure, Diagnostic procedure, LHC, LHC w/Coronaries, PCI procedure, Coronary Stent, Coronary Stent Initial 12:20:09 Place stent Inflation Number: 1 A VERONIKA RX 3.0 x 15 stent ([id number]) was prepped and advanced across the Prox CX 90. The stent was deployed at 13 BETTY for 0:10 (min:sec) 0. 12:20:26 EXOSEAL 6Fr (EX600) opened to sterile field. 12:21:42 Stent catheter was removed intact over wire. 12:21:43 Wire removed. 12:21:44 Guide catheter removed. 12:22:59 Plavix 600 mg P.O. was administered by Sandy Victoria RN; for antiplatelet therapy; 12:23:23 Sheath removed intact; hemostasis achieved with Exoseal to the Right Femoral artery. 12:23:26 Procedure ended.(Physican Out) 12:24:13 Fluoroscopy time 02.40 minutes. 12:24:22 Fluoroscopy dose: 553 mGy 12:24:22 Flurop Dose total: 553 12:24:27 Contrast amount:Isovue 300 90ml. 12:24:29 Sharps counted by scrub and verified by R.N. 12:27:26 Insertion/operative site no bleeding no hematoma. 12:27:29 Post-op/insertion site Right Femoral artery dressed using a 4 x 4 and Tegaderm. 12:27:33 Post right femoral artery:stable 12:27:52 Post-procedure physical assessment completed. ASA score P 4 - A patient with severe systemic disease that is a constant threat to life as per Jairo Spencer MD. 12:27:57 Post procedure rhythm: sinus rhythm 12:28:00 Estimated blood loss: 10 ml 12:28:02 Patient needs reinforcement of post procedure teaching. 12:28:03 Procedure and supply charges have been captured, reviewed, submitted and are correct. 12:28:06 Vital chart was stopped 12:28:06 See physician's report for complete and final results. 12:28:19 Report given to Pre/Post Procedure Room. 12::31 Patient transfered to Pre/Post Procedure Room with Stretcher. 12:29:24 Procedure ended. 12:29:24 Full Disclosure recording stopped 12:29:33 End room use (Document Last) Intervention Summary Intervention Notes Time ActionType Lesion and Equipment Used Action# Pressure Duration Attributes 12:20:[address] stent Prox CX VERONIKA RX 3.0 x 1 13 00:10 15 stent ([id number]) Device Usage Item Name Manufacture Quantity Catalog Number Hospital Part Current M inimal Lot# / Charge Number Stock Stock Serial# Code ACIST Syringe Acist 1 08902 421746 525324 000462 2 0 (42030) Medical Systems Inc Bag Decanter Microtek 1 2001S 290733 28230 447897 5 (2001S) Medical Inc. Medline Cath Medline 1 [id number] 731324 84772 694749 5 Pack ([id number]) ACIST Hand Acist 1 14451 302167 404719 909221 5 Control Medical (41476) Systems Inc ACIST Manifold Acist 1 18247 242290 069941 899522 5 (47071) Medical Systems Inc DIAGNOSTIC Cardinal 1 UA2702 952480 20232 017982 3 0 Multipack 5Fr Health catheter set (RJ5361) SHEATH 5FR Terumo 1 SWO428 873300 155080 707083 5 [place] (DBS510) EMERALD Guide Cardinal 1 502-455 082107 892766 973940 5 Wire (502-455) Health MULTIPACK Cardinal 1 448656 5 Pigtail 5 Fr Health catheter MULTIPACK JL Cardinal 1 648497 5 4.0 5Fr Health catheter MULTIPACK 3DRC Cardinal 1 509852 5 5Fr catheter Health INFLATOR Merit Merit 1 IZ0299 287315 022096 801937 1 5 ShoeSize.Me Medical (IQ4823) SHEATH 6FR Terumo 1 ZZK713 230402 845140 686752 4 0 [place] (OFS314) CHOICE PT [place] 1 [id number] 279315 345891 725421 5 Extra Support Scientific 182cm wire ([id number]) GUIDE 6FR Cardinal 1 [id number] 573463 003205 931437 1 0 XBLAD 3.5 Health catheter (73274506) VERONIKA RX 3.0 x Medtronic 1 [id number] 066237 5414756 845014 5 [id number] 15 stent ([id number]) EXOSEAL 6Fr Cardinal 1 EX600 238197 185730 515955 1 0 (EX600) Health Signature Audit [place] Stage Time Signature Unsigned Intra-Procedure 08/18/2018 Felix Snell 12:30:06 PM RT(R) (CV) Signatures Monitor : Felix Snell RT Signature : Date : Time : [id number] [place] [address]
[2018-08-18] MEDS ORDERED: PREDNISONE20 MG PO (10:14)
[2018-08-18 10:22] VITALS: Ht 172.7 cm; Wt 63.6 kg
[2018-08-18 10:42] LABS: ANION GAP 18.3 mmol/L (8-16); CALCIUM 8.2 mg/dL (8.5-10.1); CARBON DIOXIDE 25.2 mmol/L (21.0-32.0); CREATININE - SERUM 6.5 mg/dL (0.6-1.3); POTASSIUM - SERUM 4.5 mmol/L (3.5-5.1)
[2018-08-18 11:06] LABS: BASOPHILS 0.2 % (0-2); EOSINOPHILS 0.2 % (0-7); HEMATOCRIT 31.8 % (36.0-48.0); HEMOGLOBIN 10.3 g/dL (12-16); IMMATURE GRANULOCYTES 0.3 % (0-5); LYMPHOCYTES 11.4 % (15-50); MCH 32.5 pg (26.0-34.0); MCHC 32.4 g/dL (31.0-37.0); MCV 100.3 fL (80.0-100.0); MEAN PLATELET VOLUME 10.2 fL (7.4-10.4); MONOCYTES 1.6 % (2-11); NEUTROPHILS 86.3 % (40-80); RBC 3.17 10x6/uL (4.00-5.40); RDW 14.1 % (11.5-14.5); WBC 6.1 10x3/uL (4.8-10.8)
[2018-08-18 11:07] LABS: PLATELET COUNT 264 10x3/uL (130-400)
[2018-08-18 11:21] LABS: HCG SERUM NEGATIVE (NEGATIVE)
[2018-08-18] MEDS ORDERED: BAYER CHEWABLE81 MG PO (12:36)
[2018-08-18] MEDS ORDERED: PLAVIX75 MG PO (12:36)
--- NOTE | 2018-08-18 12:43 | NUR ---
PT ARRIVED BY STRETCHER. FAMILY AT BEDSIDE. PLACED ON MONITORS AND ASSESSMENT COMPLETED. BP CUFF TO LEFT LEG. CALL LIGHT WITHIN REACH.
--- NOTE | 2018-08-18 13:00 | NUR ---
RIGHT GROIN DRESSING C/D/I. NO S/S OF HEMATOMA NOTED. DR. BERGMAN ROUNDED AND SPOKE WITH PT AND PT'S FAMILY. THEY VOICED UNDERSTANDING. VSS. CALL LIGHT WITHIN REACH. PT DENIES PAIN/NAUSEA. SET UP WITH DRINK AND SANDWICH TRAY. PT REPORTS HER CAN ASSIST HER WITH EATING.
--- NOTE | 2018-08-18 13:30 | NUR ---
RIGHT GROIN DRESSING C/D/I. NO S/S OF HEMATOMA NOTED. VSS. FAMILY AT BEDSIDE. PT DENIES NAUSEA/PAIN. WILL CONTINUE TO MONITOR.
--- NOTE | 2018-08-18 13:59 | NUR ---
RIGHT GROIN DRESSING C/D/I. NO S/S OF HEMATOMA NOTED. VSS. CALL LIGHT WITHIN REACH. PT RESTING COMFORTABLY.
--- NOTE | 2018-08-18 14:30 | NUR ---
RIGHT GROIN DRESSING C/D/I. NO S/S OF HEMATOMA NOTED. VSS. FAMILY AT BEDSIDE.
--- NOTE | 2018-08-18 15:30 | NUR ---
RIGHT GROIN DRESSING C/D/I. NO S/S OF HEMATOMA NOTED. VSS. PT'S HEAD OF BED INC TO 30 DEGREES. TOLERATED WELL.
--- NOTE | 2018-08-18 16:00 | NUR ---
RIGHT AC PIV D/C'D WITH CATH TIP INTACT. TOLERATED WELL. VSS. RIGHT GROIN DRESSING C/D/I. NO S/S OF HEMATOMA NOTED. PT INSTRUCTED TO GET UP AND DRESSED. FAMILY AT BEDSIDE TO ASSIST.
--- NOTE | 2018-08-18 16:15 | NUR ---
DISCUSSED DISCHARGE INSTRUCTIONS WITH PT AND PT'S FAMILY. THEY VOICED UNDERSTANDING.
--- NOTE | 2018-08-18 16:27 | NUR ---
PT TAKEN OUT TO VEHICLE BY WHEELCHAIR. NO S/S OF DISTRESS NOTED. ALL BELONGINGS AND PAPERWORK IN HAND. RIGHT GROIN DRESSING C/D/I. NO S/S OF HEMATOMA NOTED.
--- NOTE | 2018-08-22 18:38 | OP ---
PATIENT NAME: JYOTSNA JULIAN MEDICAL RECORD: [id number] :63 LOCATION:D.CAT ADMISSION DATE: SURGEON: WILMER BERGMAN MD DATE OF OPERATION: 08/18/2018 DATE OF SERVICE: 08/18/2018 PROCEDURES: 1. PTCA stent left circumflex. 2. Left heart catheterization. 3. Selective coronary angiography. 4. Left ventriculogram. INDICATION: Unstable angina, coronary artery disease, abnormal nuclear stress test, lateral ischemia. PROCEDURE IN DETAIL: After informed consent was obtained and after a detailed explanation of the risks, benefits as well as alternative therapies, the patient elected to proceed with angiogram and angioplasty. The right femoral area was prepped and draped in normal sterile fashion. Right femoral artery was cannulated via modified Seldinger technique with placement of 6-Malian sheath. All catheters exchanged through this sheath. FINDINGS: Left ventriculogram was performed in standard 30-degree ROMEO view, reveals good cardiac wall motion throughout all segments. Overall ejection fraction estimated at 60%. SELECTIVE CORONARY ANGIOGRAPHY: 1. Left main is with no significant angiographic disease. 2. Left anterior descending has previously placed stents, these are widely patent with no significant restenosis. No disease elsewise at the LAD or its branches. 3. Left circumflex has an 85-90% stenosis proximally that correlates with nuclear stress test abnormality. 4. Right coronary has moderate irregularities, but no flow-limiting stenosis. Previously placed stents are widely patent. PTCA STENT OF THE LEFT CIRCUMFLEX: The stent used was a 3.0 x 15 mm Manish, result was 0% residual stenosis. OVERALL IMPRESSION: Successful percutaneous transluminal coronary angioplasty stent of the left circumflex going from 85-90% initial stenosis which correlates with the perfusion defect on nuclear stress test to 0% residual stenosis. TRANSINT:[id number] Voice Confirmation ID: [id number] DOCUMENT ID: [id number] WILMER BERGMAN MD at 1838 CC: [id number] DICTATION DATE: 08/18/18 1226 WARP DYEING VAT TENDER: 08/18/18 1243 DEP CLI 08/18/18 [place] [address]
== END 2018-08-18 16:27 | disposition home or self-care (01) ==
LOC: D.CATH 09:52
PROVIDERS: ATTEND Internal Medicine Interventional Cardiology
DX: I25.110 Atherosclerotic heart disease of native coronary artery with unstable angina pectoris (principal); Z95.5 Presence of coronary angioplasty implant and graft; Z01.812 Encounter for preprocedural laboratory examination
CPT/HCPCS: 93458; C9600

== ENCOUNTER 2018-09-27 05:37 | Observation (INO) | payer MEDICARE, BC ==
[~2018-09-27] VITALS: Ht 172.7 cm; Wt 62.3 kg
[2018-09-27] VITALS (9 sets, daily range): BP systolic 160–177; BP diastolic 53–86; Ht 172.7 cm; Wt 62.3 kg
[~2018-09-27 05:37] MED LIST changes: +PREDNISONE20 MG PO
[2018-09-27] MEDS ORDERED: BRILINTA90 MG PO (05:46)
[2018-09-27 06:34] LABS: ALBUMIN 3.9 g/dL (3.4-5.0); ALKALINE PHOSPHATASE 180 U/L (46-116); ALT (SGPT) 13 U/L (10-68); BILIRUBIN - TOTAL 1.01 mg/dL (0.2-1.3); CALC OSMOLALITY 296 mosm/kg (275-300); CARBON DIOXIDE 25.8 mmol/L (21.0-32.0); CHLORIDE - SERUM 98 mmol/L (98-107); CREATININE - SERUM 7.1 mg/dL (0.6-1.3); INR 1.05 (0.85-1.17); POTASSIUM - SERUM 4.5 mmol/L (3.5-5.1); PROTIME 13.2 SECONDS (11.6-15.0); SODIUM 139 mmol/L (136-145); UREA NITROGEN 48 mg/dL (7-18); eGFR NON AFRICAN AMERICAN 6 mL/min (90-120)
[2018-09-27 06:35] LABS: GLUCOSE 212 mg/dL (74-106)
[2018-09-27 06:44] LABS: LIPASE 233 U/L (73-393); MAGNESIUM - SERUM 2.1 mg/dL (1.8-2.4); PRO BNP 22994 pg/mL (0-125); TROPONIN-I < 0.017 ng/mL (0.000-0.060)
[2018-09-27 07:40] LABS: BASOPHILS 1.2 % (0-2); EOSINOPHILS 22.6 % (0-7); HEMATOCRIT 35.5 % (36.0-48.0); HEMOGLOBIN 11.4 g/dL (12-16); IMMATURE GRANULOCYTES 0.1 % (0-5); LYMPHOCYTES 21.1 % (15-50); MCH 31.4 pg (26.0-34.0); MCHC 32.1 g/dL (31.0-37.0); MCV 97.8 fL (80.0-100.0); MEAN PLATELET VOLUME 10.3 fL (7.4-10.4); RBC 3.63 10x6/uL (4.00-5.40); RDW 14.6 % (11.5-14.5); WBC 6.9 10x3/uL (4.8-10.8)
[2018-09-27 07:43] LABS: PLATELET COUNT 203 10x3/uL (130-400)
[2018-09-28] VITALS: BP 149/60
[2018-09-28 04:00] VITALS: BP 128/53
[2018-09-28 06:02] LABS: BASOPHILS 0.3 % (0-2); EOSINOPHILS 0.9 % (0-7); HEMATOCRIT 33.9 % (36.0-48.0); IMMATURE GRANULOCYTES 0.1 % (0-5); LYMPHOCYTES 19.3 % (15-50); MCH 31.5 pg (26.0-34.0); MCHC 32.4 g/dL (31.0-37.0); MCV 97.1 fL (80.0-100.0); MEAN PLATELET VOLUME 9.9 fL (7.4-10.4); MONOCYTES 6.8 % (2-11); NEUTROPHILS 72.6 % (40-80); PLATELET COUNT 201 10x3/uL (130-400); RBC 3.49 10x6/uL (4.00-5.40); RDW 14.6 % (11.5-14.5); WBC 7.6 10x3/uL (4.8-10.8)
[2018-09-28 06:18] LABS: ANION GAP 20.7 mmol/L (8-16); CALCIUM 9.2 mg/dL (8.5-10.1); CARBON DIOXIDE 22.7 mmol/L (21.0-32.0); PHOSPHOROUS 5.6 mg/dL (2.5-4.9); POTASSIUM - SERUM 4.4 mmol/L (3.5-5.1)
[2018-09-28 06:20] LABS: CREATININE - SERUM 9.3 mg/dL (0.6-1.3)
[2018-09-28 08:41] VITALS: BP 155/60
[2018-09-28] MEDS ORDERED: BROVANA15 MCG/2 M INH (12:06)
[2018-09-28] MEDS ORDERED: ALBUTEROL0.63 MG/3 UPD (12:06)
[2018-09-28] MEDS ORDERED: BETAPACE 80 MG80 MG PO (12:07)
[2018-09-28] MEDS ORDERED: PULMICORT0.5 MG/21 UPD (12:08)
[2018-09-28] MEDS ORDERED: FLUTICASONE PRO16 GM NASAL (12:09)
--- NOTE | 2018-09-29 08:10 | MORECARE ---
CASE MANAGEMENT DISCHARGE SUMMARY PATIENT: JYOTSNA HOPE UNIT: [id number] ADM DATE: 09/27/18 AGE: 53 : 63 SEX: F ROOM/BED: D.2072 AUTHOR: ORQUIDEA PRICE PHYSICIAN: REFERRING PHYSICIAN: DAVIE RODRIGUEZ MD DATE OF SERVICE: 09/29/18 Discharge Plan Patient Name: JYOTSNA HOPE Facility: [facility]:[place] : 1965 Planned Disposition: Home Anticipated Discharge Date: 09/28/18 Discharge Date: 09/28/2018 Expected LOS: 1 Initial Reviewer: [email or web address] Initial Review Date: 09/29/2018 Generated: 09/29/18 9:09 am DCP- Discharge Planning Updated by [email or web address]: Anayeli Wells on 09/27/18 11:[address] CM met with patient and spouse to discuss discharge planning and needs. Spouse is at bedside. Patient is in agreement to proceed with assessment with spouse, Satish Hope present. Patient is alert/oriented, gives permission to complete CM assessment. Patient lives at home independently at home with her . [facility]. Pharmacy: [facility]. Equipment: Nebulizer. Emergency contact: Satish Hope (spouse) #[phone].Denies use of additional services or HHS. Plans to return home with spouse and he will transport her home upon discharge. Patient is currently on O2 and may benefit WALK TEST FOR HOME O2. Denies need for additional services at this time and feels safe returning to previous environment. Patient denies being hospitalized within the past 30 days. Patient denies use of community resources LEASE EXAMINER. Transportation at time of discharge: Satish Hope #[phone]. CM will follow and assist with dc planning PRN. Anayeli Wells RN CM Coverage Notice Reviewer: [email or web address] Ganga [place]anderos Notice Issued Date-Time: 09/28/2018 11:56 Notice Type: Medicare Outpatient Observation Notice Notice Delivered To: Patient Relationship to Patient: Spouse Emergency Vehicle Technician Name: SATISH HOPE Delivery Method: HAND - Hand Delivered Dottie Days: Prior Verbal Notification: Recipient Understood Notice: Yes Recipient Signature: Yes Med Rec Note Co-signed by Attending: Coverage Notice Comment: Patient Name: JYOTSNA HOPE Page 28859 at 0810 All edits/amendments must be made on the electronic document DICTATION DATE: 09/29/18808 NETWORK PROJECT MANAGER: IVETTE 09/29/18808 RPT#: [id number] DC DATE:09/28/18 STATUS: DIS IN [address] [place] [address] END OF REPORT
== END 2018-09-28 14:03 | disposition home or self-care (01) ==
LOC: D.ER 05:37 → D.M2 14:33 → OBSVTIME 14:33 → D.M2 14:33
PROVIDERS: Family Medicine; ADMIT Internal Medicine Nephrology; ATTEND Internal Medicine Nephrology
DX: J44.9 Chronic obstructive pulmonary disease, unspecified (principal); E11.9 Type 2 diabetes mellitus without complications; E11.22 Type 2 diabetes mellitus with diabetic chronic kidney disease; I12.0 Hypertensive chronic kidney disease with stage 5 chronic kidney disease or end stage renal disease; N18.6 End stage renal disease; Z99.2 Dependence on renal dialysis; E83.39 Other disorders of phosphorus metabolism; I25.10 Atherosclerotic heart disease of native coronary artery without angina pectoris; J40 Bronchitis, not specified as acute or chronic; J81.1 Chronic pulmonary edema; D63.1 Anemia in chronic kidney disease

== ENCOUNTER → 2018-11-29 08:43 | Outpatient (CLI) | payer MEDICARE, BC ==
[2018-09-27 15:59] VITALS: BMI 20.8
[~2018-11-29 08:43] MED LIST changes: +ALBUTEROL0.63 MG/3 UPD; +BROVANA15 MCG/2 M INH; +FLUTICASONE PRO16 GM NASAL; +PULMICORT0.5 MG/21 UPD
== END | disposition home or self-care (01) ==
LOC: D.HCCECHO 08:43
PROVIDERS: ATTEND Internal Medicine Interventional Cardiology
DX: J44.9 Chronic obstructive pulmonary disease, unspecified (principal)

== ENCOUNTER 2019-06-05 14:16 | Inpatient (IN) | payer MEDICARE, BC ==
[~2019-06-05] VITALS: Ht 172.7 cm; Wt 62.1 kg
[2019-06-05 15:17] LABS: BASOPHILS 0.4 % (0-2); EOSINOPHILS 8.2 % (0-7); HEMATOCRIT 31.5 % (36.0-48.0); HEMOGLOBIN 9.8 g/dL (12-16); IMMATURE GRANULOCYTES 0.4 % (0-5); LYMPHOCYTES 22.8 % (15-50); MCH 32.5 pg (26.0-34.0); MCHC 31.1 g/dL (31.0-37.0); MCV 104.3 fL (80.0-100.0); MEAN PLATELET VOLUME 9.4 fL (7.4-10.4); MONOCYTES 8.3 % (2-11); NEUTROPHILS 59.9 % (40-80); PLATELET COUNT 235 10x3/uL (130-400); RBC 3.02 10x6/uL (4.00-5.40); WBC 6.7 10x3/uL (4.8-10.8)
[2019-06-05 15:30] LABS: ANION GAP 17.5 mmol/L (8-16); CALCIUM 8.4 mg/dL (8.5-10.1); CARBON DIOXIDE 27.9 mmol/L (21.0-32.0); CREATININE - SERUM 4.8 mg/dL (0.6-1.3); POTASSIUM - SERUM 3.4 mmol/L (3.5-5.1)
[2019-06-05 15:35] LABS: ALBUMIN 3.3 g/dL (3.4-5.0); BILIRUBIN - TOTAL 0.51 mg/dL (0.2-1.3); PROTEIN - SERUM 8.5 g/dL (6.4-8.2)
--- NOTE | 2019-06-05 16:49 | NUR ---
REPORT CALLED AT THIS TIME
[2019-06-05 18:59] VITALS: BP 150/84; BMI 20.8
[2019-06-06 04:56] LABS: BASOPHILS 0.8 % (0-2); EOSINOPHILS 10.6 % (0-7); HEMATOCRIT 33.7 % (36.0-48.0); HEMOGLOBIN 10.4 g/dL (12-16); IMMATURE GRANULOCYTES 0.3 % (0-5); LYMPHOCYTES 26.4 % (15-50); MCH 32.2 pg (26.0-34.0); MCHC 30.9 g/dL (31.0-37.0); MCV 104.3 fL (80.0-100.0); MEAN PLATELET VOLUME 9.5 fL (7.4-10.4); NEUTROPHILS 54.9 % (40-80); PLATELET COUNT 247 10x3/uL (130-400); RBC 3.23 10x6/uL (4.00-5.40); RDW 13.7 % (11.5-14.5); WBC 6.4 10x3/uL (4.8-10.8)
[2019-06-06 05:18] LABS: ALBUMIN 2.9 g/dL (3.4-5.0); ANION GAP 17.9 mmol/L (8-16); BILIRUBIN - TOTAL 0.51 mg/dL (0.2-1.3); CALCIUM 8.6 mg/dL (8.5-10.1); CARBON DIOXIDE 26.8 mmol/L (21.0-32.0); POTASSIUM - SERUM 3.7 mmol/L (3.5-5.1); PROTEIN - SERUM 7.6 g/dL (6.4-8.2)
[2019-06-06 05:19] LABS: CREATININE - SERUM 6.6 mg/dL (0.6-1.3)
--- NOTE | 2019-06-06 07:00 | NUR ---
RECEIVED REPORT. ASSUMED CARE OF PATIENT. PATIENT REMAINS IN ISOLATION FOR POSSIBLE COVID-19, AWAITING RESULTS.
[2019-06-06 07:30] VITALS: BP 153/75
[2019-06-06 10:27] VITALS: Ht 172.7 cm; Wt 62.1 kg
--- NOTE | 2019-06-06 11:30 | NUR ---
FSBS 167. 2 UNITS HUMALOG ADMINISTERED PER SLIDING SCALE. NO DISTRESS.
[2019-06-06 11:32] VITALS: BP 145/82
--- NOTE | 2019-06-06 12:21 | NUR ---
SHOWER COMPLETED, LINENS CHANGED. PATIENT SITTING TO CHAIR AT BEDSIDE. NO DISTRESS. CALL LIGHT WITHIN REACH.
--- NOTE | 2019-06-06 13:37 | NUR ---
CALLED ROOM TO CHECK ON PATIENT. PATIENT DENIES ANY NEEDS AT THIS TIME. NO DISTRESS.
--- NOTE | 2019-06-06 13:56 | NUR ---
UPDATE PROVIDED TO RENAL FORM PRESSERRISHI, AT THIS TIME.
[2019-06-06 15:26] VITALS: BP 150/77
--- NOTE | 2019-06-06 16:33 | NUR ---
FSBS 126. NO INSULIN PER SLIDING SCALE.
--- NOTE | 2019-06-06 20:00 | NUR ---
PT IN BED, AAO X 3, RESP EVEN AND UNLABORED. NO DISTRESS NOTED, CL IN REACH, SR UP X 2.
[2019-06-06 20:41] VITALS: BP 159/87
[2019-06-07 00:03] VITALS: BP 135/66
--- NOTE | 2019-06-07 01:52 | NUR ---
I have reviewed this patient and I concur with the Shift Assessment completed by the Licensed Practical Nurse today this shift.
[2019-06-07 03:59] VITALS: BP 131/67
[2019-06-07 06:05] LABS: EOSINOPHILS 14.8 % (0-7); IMMATURE GRANULOCYTES 0.3 % (0-5); LYMPHOCYTES 35.2 % (15-50); MCH 32.7 pg (26.0-34.0); MCHC 31.9 g/dL (31.0-37.0); MEAN PLATELET VOLUME 9.7 fL (7.4-10.4); MONOCYTES 10.3 % (2-11); NEUTROPHILS 38.4 % (40-80)
[2019-06-07 06:33] LABS: HEMATOCRIT 45.1 % (36.0-48.0); HEMOGLOBIN 14.4 g/dL (12-16); MCV 102.3 fL (80.0-100.0); PLATELET COUNT 163 10x3/uL (130-400); RBC 4.41 10x6/uL (4.00-5.40); WBC 3.1 10x3/uL (4.8-10.8)
[2019-06-07 07:07] LABS: ANION GAP 16.7 mmol/L (8-16); C-REACTIVE PROTEIN 5.5 mg/dL (0.0-0.9); CALCIUM 8.3 mg/dL (8.5-10.1); CARBON DIOXIDE 26.1 mmol/L (21.0-32.0); PHOSPHOROUS 5.5 mg/dL (2.5-4.9); POTASSIUM - SERUM 3.8 mmol/L (3.5-5.1); VANCOMYCIN - RANDOM 28.1 ug/mL (10.0-20.0)
[2019-06-07 07:10] LABS: CREATININE - SERUM 8.5 mg/dL (0.6-1.3)
[2019-06-07 07:26] LABS: APTT 31.3 SECONDS (22.8-39.4); INR 1.05 (0.85-1.17); PROTIME 13.6 SECONDS (11.6-15.0)
[2019-06-07 07:27] LABS: D-DIMER-QUANTITATIVE 1.22 ug/mLFEU (0.20-0.54)
[2019-06-07 07:46] LABS: ERYTHROCYTE SEDIMENTATION RATE 39 mm/hr (0-30)
[2019-06-07 12:24] VITALS: BP 144/72
[2019-06-07 20:00] VITALS: BP 173/72
[2019-06-08] VITALS: BP 152/88
--- NOTE | 2019-06-08 01:54 | NUR ---
PRINTED OUT THE ORDER AND WILL LEAVE WITH BLOW MACHINE TENDER STARCH SPRAYING REGARDING GETTING PTS PRIOR CT SCAN FROM [place].
[2019-06-08 04:00] VITALS: BP 140/65
[2019-06-08 04:49] LABS: BASOPHILS 1.5 % (0-2); EOSINOPHILS 19.2 % (0-7); IMMATURE GRANULOCYTES 0.6 % (0-5); LYMPHOCYTES 34.9 % (15-50); MCH 32.1 pg (26.0-34.0); MCHC 30.9 g/dL (31.0-37.0); MCV 103.9 fL (80.0-100.0); MEAN PLATELET VOLUME 9.4 fL (7.4-10.4); MONOCYTES 11.5 % (2-11); NEUTROPHILS 32.3 % (40-80); RDW 13.7 % (11.5-14.5)
[2019-06-08 04:52] LABS: HEMOGLOBIN 9.9 g/dL (12-16); PLATELET COUNT 290 10x3/uL (130-400); RBC 3.08 10x6/uL (4.00-5.40); WBC 5.3 10x3/uL (4.8-10.8)
[2019-06-08 05:21] LABS: CALCIUM 8.9 mg/dL (8.5-10.1); CARBON DIOXIDE 24.5 mmol/L (21.0-32.0); PHOSPHOROUS 5.2 mg/dL (2.5-4.9); POTASSIUM - SERUM 3.5 mmol/L (3.5-5.1)
[2019-06-08 05:23] LABS: CREATININE - SERUM 5.6 mg/dL (0.6-1.3)
--- NOTE | 2019-06-08 06:04 | NUR ---
PTS BLOOD SUGAR 116. OFFERED HER THE GLUCOTROL AND SHE WANTS TO WAIT UNTIL HER BREAKFAST TRAY IS HERE SO HER BLOOD SUGAR DOES NOT DROP. WILL PASS THIS ALONG TO THE DAYSHIFT NURSE.
[2019-06-08] MEDS ORDERED: CLEOCIN HCL300 MG PO (07:56)
[2019-06-08] MEDS ORDERED: LEVOFLOXAC250 MG/50 IV (07:56)
[2019-06-08 10:09] LABS: ANA REFLEX - DIRECT Negative (Negative)
--- NOTE | 2019-06-08 10:27 | MORECARE ---
CASE MANAGEMENT DISCHARGE SUMMARY PATIENT: JYOTSNA JULIAN UNIT: [id number] ADM DATE: 06/05/19 AGE: 54 : 63 SEX: F ROOM/BED: D.2101 AUTHOR: ORQUIDEA PRICE PHYSICIAN: REFERRING PHYSICIAN: DAVIE RODRIGUEZ MD DATE OF SERVICE: 06/08/19 Discharge Plan Patient Name: JYOTSNA JULIAN Facility: [facility]:[place] : 1965 Planned Disposition: Home Anticipated Discharge Date: 06/08/19 Discharge Date: Expected LOS: 3 Initial Reviewer: [email or web address] Initial Review Date: 06/08/2019 Generated: 06/08/19 11:27 am Patient Name: JYOTSNA JULIAN Page [id number] at 1027 All edits/amendments must be made on the electronic document DICTATION DATE: 06/08/19 1027 AMERICAN INDIAN POLICY SPECIALIST: IVETTE 06/08/19 1027 RPT#: [id number] DC DATE: STATUS: ADM IN [facility] [address] [place] [address] END OF REPORT
--- NOTE | 2019-06-08 10:34 | MORECARE ---
CASE MANAGEMENT DISCHARGE SUMMARY PATIENT: JYOTSNA JULIAN UNIT: [id number] ADM DATE: 06/05/19 AGE: 54 : 63 SEX: F ROOM/BED: D.2101 AUTHOR: ORQUIDEA PRICE PHYSICIAN: REFERRING PHYSICIAN: DAVIE RODRIGUEZ MD DATE OF SERVICE: 06/08/19 Discharge Plan Patient Name: JYOTSNA JULIAN Facility: [facility]:[place] : 1965 Planned Disposition: Home Anticipated Discharge Date: 06/08/19 Discharge Date: Expected LOS: 3 Initial Reviewer: [email or web address] Initial Review Date: 06/08/2019 Generated: 06/08/19 11:34 am DCPIA - Discharge Planning Initial Assessment Updated by [email or web address]: Altagracia Duke on 06/08/19 10:28 am * Is the patient Alert and Oriented? Yes * PCP Dr. Moralez in [place] * Pharmacy [facility] * Preadmission Environment Home with Family * ADLs Independent * Equipment Nebulizer Other Oxygen * Other Equipment Portable oxygen * List name and contact numbers for known caregivers / representatives who currently or will assist patient after discharge: [facility] [phone] * Verbal permission to speak to the caregivers and representatives has been obtained from the patient. Yes * Community resources currently utilized Other * Please name any agencies selected above. [facility] at [facility] [phone] * Additional services required to return to the preadmission environment? No * Can the patient safely return to the preadmission environment? Yes * Has this patient been hospitalized within the prior 30 days at any hospital? No Last DP export: 06/08/19 9:27 a Patient Name: JYOTSNA JULIAN Page [phone] at 1034 All edits/amendments must be made on the electronic document DICTATION DATE: 06/08/19 1034 [facility] AFFA[employer] DEAN: IVETTE 06/08/19 1034 RPT#: [id number] DC DATE: STATUS: ADM IN [facility] [address] [place] [address] END OF REPORT
--- NOTE | 2019-06-08 11:01 | NUR ---
D/C INSTRUCTIONS REVIEWED WITH PT. VERBALIZED UNDERSTANDING. IV D/C WITH CATHETER TIP INTACT. DENIES WHEELCHAIR. AMBULATED TO PERSONAL VEHIVLE WITH STEADY GAIT. ALL BELONGINGS WITH PT.
[2019-06-08 11:09] VITALS: BP 156/72
--- NOTE | 2019-06-08 11:10 | MORECARE ---
CASE MANAGEMENT DISCHARGE SUMMARY PATIENT: JYOTSNA JULIAN UNIT: [id number] ADM DATE: 06/05/19 AGE: 54 : 63 SEX: F ROOM/BED: D.2104 AUTHOR: ORQUIDEA PRICE PHYSICIAN: REFERRING PHYSICIAN: DAVIE AGUSTIN MD DATE OF SERVICE: 06/08/19 Discharge Plan Patient Name: JYOTSNA JULIAN Facility: [facility]:[place] : 1965 Planned Disposition: Home Anticipated Discharge Date: 06/08/19 Discharge Date: 06/08/2019 Expected LOS: 3 Initial Reviewer: [email or web address] Initial Review Date: 06/08/2019 Generated: 06/08/19 12:09 pm Comments DCP- Discharge Planning Updated by [email or web address]: Altagracia Duke on 06/08/19 10:[address] Patient Name: JYOTSNA JULIAN Admission Status: ER Accout number: [id number] Admission Date: 06-05-2019 : 1965 Admission Diagnosis:PNEUMONIA, UNSPECIFIED ORGANISM Attending: Davie Agustin Current LOS: 3 Anticipated DC Date: 06-08-2019 Planned Disposition: Home Primary Insurance: MEDICARE A & B Discharge Planning Comments: CM met with patient to complete initial dc planning assessment. CM educated patient on the CM role and verbal consent given by patient to complete assessment. Patient lives at home with her spouse. At discharge patient plans to return and feels this is a safe discharge. CM discussed availability of home health, rehab services, and medical equipment. Patient denied known discharge needs at this time. She dialyzes MWF at 0630 in [place]. I have called [facility] Tavarez, and it is ok for her to return to her normal time and place for dialysis. CM will continue to follow and will assist as needed with dc plans/needs. Pediatric Psychologist: Altagracia Duke DCPIA - Discharge Planning Initial Assessment Updated by [email or web address]: Altagracia Duke on 06/08/19 10:28 am * Is the patient Alert and Oriented? Yes * PCP Dr. Moralez in [place] * Pharmacy [facility] * Preadmission Environment Home with Family * ADLs Independent * Equipment Nebulizer Other Oxygen * Other Equipment Portable oxygen * List name and contact numbers for known caregivers / representatives who currently or will assist patient after discharge: Moises [facility] [phone] * Verbal permission to speak to the caregivers and representatives has been obtained from the patient. Yes * Community resources currently utilized Other * Please name any agencies selected above. Dialyzes at [facility] [phone] * Additional services required to return to the preadmission environment? No * Can the patient safely return to the preadmission environment? Yes * Has this patient been hospitalized within the prior 30 days at any hospital? No Coverage Notice Reviewer: [id number] Ganga Duke Notice Issued Date-Time: 06/08/2019 10:00 Notice Type: IM Discharge Notice Notice Delivered To: Patient Relationship to Patient: Self Member [employer] Name: Delivery Method: HAND - Hand Delivered Dottie Days: Prior Verbal Notification: Recipient Understood Notice: Yes Recipient Signature: Yes Med Rec Note Co-signed by Attending: Coverage Notice Comment: IMM explained, signed, given, copy placed in MR Last DP export: 06/08/19 9:34 a Patient Name: JYOTSNA JULIAN Page [id number] at 1110 All edits/amendments must be made on the electronic document DICTATION DATE: 06/08/191108 INDUSTRIAL REHABILITATION CONSULTANT: IVETTE 06/08/191108 RPT#: [id number] DC DATE:06/08/19 STATUS: DIS IN [facility] [address] [place] [address] END OF REPORT
[2019-06-09 13:09] LABS: PROCALCITONIN 1.36 ng/mL (0.00-0.08)
[2019-06-09 21:06] LABS: MYCOPLASMA PNEUMO IGG 136 U/mL (0-99)
[2019-06-11 16:08] LABS: FUNGAL - ASP FLAVUS Negative (Neg:<1:1); FUNGAL - ASP NIGER Negative (Neg:<1:1); FUNGAL - ASPER FUMIGATUS Negative (Neg:<1:1)
--- NOTE | 2019-06-11 18:57 | MORECARE ---
CASE MANAGEMENT DISCHARGE SUMMARY PATIENT: JYOTSNA JULIAN UNIT: [id number] ADM DATE: 06/05/19 AGE: 54 : 63 SEX: F ROOM/BED: D.2109 AUTHOR: ORQUIDEA PRICE PHYSICIAN: REFERRING PHYSICIAN: DAVIE AGUSTIN MD DATE OF SERVICE: 06/11/19 Discharge Plan Patient Name: JYOTSNA JULIAN Facility: [facility]:[place] : 1965 Planned Disposition: Home Anticipated Discharge Date: 06/08/19 Discharge Date: 06/08/2019 Expected LOS: 3 Initial Reviewer: [email or web address] Initial Review Date: 06/08/2019 Generated: 06/11/19 7:57 pm Comments DCP- Discharge Planning Updated by [email or web address]: Altagracia Duke on 06/08/19 10:[address] Patient Name: JYOTSNA JULIAN Admission Status: ER Accout number: [id number] Admission Date: 06-05-2019 : 1965 Admission Diagnosis:PNEUMONIA, UNSPECIFIED ORGANISM Attending: Davie Agustin Current LOS: 3 Anticipated DC Date: 06-08-2019 Planned Disposition: Home Primary Insurance: MEDICARE A & B Discharge Planning Comments: CM met with patient to complete initial dc planning assessment. CM educated patient on the CM role and verbal consent given by patient to complete assessment. Patient lives at home with her spouse. At discharge patient plans to return and feels this is a safe discharge. CM discussed availability of home health, rehab services, and medical equipment. Patient denied known discharge needs at this time. She dialyzes MWF at 0630 in [place]. I have called [facility] Tav[facility], and it is ok for her to return to her normal time and place for dialysis. CM will continue to follow and will assist as needed with dc plans/needs. Theatrical Rigger: Altagracia Duke DCPIA - Discharge Planning Initial Assessment Updated by [email or web address]: Altagracia Duke on 06/08/19 10:28 am * Is the patient Alert and Oriented? Yes * PCP Dr. Moralez in [place] * Pharmacy [facility] * Preadmission Environment Home with Family * ADLs Independent * Equipment Nebulizer Other Oxygen * Other Equipment Portable oxygen * List name and contact numbers for known caregivers / representatives who currently or will assist patient after discharge: Moises [facility] [phone] * Verbal permission to speak to the caregivers and representatives has been obtained from the patient. Yes * Community resources currently utilized Other * Please name any agencies selected above. Dialyzes at [facility] [phone] * Additional services required to return to the preadmission environment? No * Can the patient safely return to the preadmission environment? Yes * Has this patient been hospitalized within the prior 30 days at any hospital? No Coverage Notice Reviewer: [id number] Ganga Duke Notice Issued Date-Time: 06/08/2019 10:00 Notice Type: IM Discharge Notice Notice Delivered To: Patient Relationship to Patient: Self Curing Oven Tender Name: Delivery Method: HAND - Hand Delivered Dottie Days: Prior Verbal Notification: Recipient Understood Notice: Yes Recipient Signature: Yes Med Rec Note Co-signed by Attending: Coverage Notice Comment: IMM explained, signed, given, copy placed in MR Last DP export: 06/08/19 10:10 a Patient Name: JYOTSNA JULIAN Page [phone] at 1857 All edits/amendments must be made on the electronic document DICTATION DATE: 06/11/191856 COORDINATOR OF HEALTH SERVICES: IVETTE 06/11/191856 RPT#: [id number] DC DATE:06/08/19 STATUS: DIS IN [facility] [address] [place] [address] END OF REPORT
== END 2019-06-08 11:08 | disposition home or self-care (01) | DRG 193 ==
LOC: D.ER 14:16 → D.M2 15:40
PROVIDERS: Family Medicine; Internal Medicine Pulmonary Disease; ADMIT Internal Medicine Nephrology; ATTEND Internal Medicine Nephrology
PROC: 5A1D70Z Performance of Urinary Filtration, Intermittent, Less than 6 Hours Per Day (ICD-10-PCS; principal; 2019-06-07)
DX: J18.9 Pneumonia, unspecified organism (principal); N18.6 End stage renal disease; J44.0 Chronic obstructive pulmonary disease with (acute) lower respiratory infection; I13.2 Hypertensive heart and chronic kidney disease with heart failure and with stage 5 chronic kidney disease, or end stage renal disease; I50.30 Unspecified diastolic (congestive) heart failure; E11.22 Type 2 diabetes mellitus with diabetic chronic kidney disease; Z99.2 Dependence on renal dialysis; D63.1 Anemia in chronic kidney disease; N28.1 Cyst of kidney, acquired; K21.9 Gastro-esophageal reflux disease without esophagitis; R19.7 Diarrhea, unspecified; I25.10 Atherosclerotic heart disease of native coronary artery without angina pectoris